=== PATIENT | female | born 1995 | race Caucasian/White ===

== ENCOUNTER 2018-12-22 23:19 | Emergency (ER) | payer OTHER ==
[~2018-12-22] VITALS: Ht 162.6 cm; Wt 56.7 kg
[2018-12-22 23:29] VITALS: BP 129/71
[2018-12-23 00:03] LABS: BILIRUBIN,URINE NEGATIVE (NEG); CLARITY,URINE CLEAR; COLOR,URINE YELLOW; NITRITE,URINE NEGATIVE (NEG); PROTEIN,URINE NEGATIVE (NEG-TRACE)
[2018-12-23 00:06] LABS: BASO % 0 % (0-3); EOS # 0.2 x10^3/uL (0.0-0.7); EOS % 3 % (0-3); HEMATOCRIT 43.4 % (36.0-47.0); HEMOGLOBIN 14.6 g/dL (12.0-15.5); LYMPH # 2.7 x10^3/uL (1.0-4.8); LYMPH % 32 % (24-48); MEAN CORPUSCULAR HEMOGLOBIN 29 pg (25-35); MEAN CORPUSCULAR HGB CONC 34 g/dL (31-37); MEAN CORPUSCULAR VOLUME 85 fL (79-100); MONO # 0.8 x10^3/uL (0.0-1.1); MONO % 9 % (0-9); NEUT # 4.6 x10^3uL (1.8-7.7); NEUT % 55 % (31-73); PLATELET COUNT 220 x10^3/uL (140-400); RED BLOOD COUNT 5.13 x10^6/uL (3.50-5.40); RED CELL DISTRIBUTION WIDTH 12.9 % (11.5-14.5); WHITE BLOOD COUNT 8.3 x10^3/uL (4.0-11.0)
[2018-12-23 00:14] LABS: BACTERIA,URINE FEW /HPF (0-FEW); RBC,URINE 0 /HPF (0-2); SQUAMOUS EPITHELIAL CELL,UR MOD /LPF; WBC,URINE 0 /HPF (0-4)
--- NOTE | 2018-12-23 00:16 | PHYS DOC ---
Past Medical History Past Medical History: Endometriosis, Other Additional Past Medical Histor: PCOS Past Surgical History: Additional Past Surgical Histo: ENDOMETRIOSIS Drug Use: None Adult General Chief Complaint Chief Complaint: ABDOMINAL PAIN IN HPI HPI Patient is a 23 year old female who presents with transient pain a couple of seconds only on prior scar. She describes the lower abdominal pain as a migratory "electric shock" sensation. She denies any trauma to the pelvic region. Denies vaginal bleeding, fever, chills, nausea, vomiting, diarrhea. Last menstrual period 11/20/18. She expresses concern about the viability of this since she has had a recent "blighted ovum."[] Review of Systems Review of Systems Constitutional: Denies fever or chills [] Eyes: Denies change in visual acuity, redness, or eye pain [] HENT: Denies nasal congestion or sore throat [] Respiratory: Denies cough or shortness of breath [] Cardiovascular: No additional information not addressed in HPI [] Neurologic: Denies headache, focal weakness or sensory changes [] All other systems were reviewed and found to be within normal limits, except as documented in this note. Physical Exam Physical Exam Constitutional: Well developed, well nourished, no acute distress, non-toxic appearance. [] HENT: Normocephalic, atraumatic, bilateral external ears normal, oropharynx moist, no oral exudates, nose normal. [] Eyes: PERRLA, EOMI, conjunctiva normal, no discharge. [] Neck: Normal range of motion, no tenderness, supple, no stridor. [] Pulmonary: Normal respiratory effort no increased work of breathing no obvious chest wall trauma Abdomen: Bowel sounds normal, soft, mild tenderness localizes to the lateral aspect of csection scar, no tenderness with deep palpation, no masses, no pulsatile masses. [] Neurologic: Alert and oriented X 3, normal motor function, normal sensory function, no focal deficits noted. [] Psychologic: Affect normal, judgement normal, mood normal. [] Current Patient Data Vital Signs Vital Signs Date Time Temp Pulse Resp B/P (MAP) Pulse Ox O2 Delivery O2 Flow Rate FiO2 12/22/18 23:29 97.7 89 18 129/71 (90) 99 Room Air 97.7 Lab Values Laboratory Tests Test 12/22/18 23:39 12/22/18 23:42 White Blood Count 8.3 x10^3/uL (4.0-11.0) Red Blood Count 5.13 x10^6/uL (3.50-5.40) Hemoglobin 14.6 g/dL (12.0-15.5) Hematocrit 43.4 % (36.0-47.0) Mean Corpuscular Volume 85 fL (79-100) Mean Corpuscular Hemoglobin 29 pg (25-35) Mean Corpuscular Hemoglobin Concent 34 g/dL (31-37) Red Cell Distribution Width 12.9 % (11.5-14.5) Platelet Count 220 x10^3/uL (140-400) Neutrophils (%) (Auto) 55 % (31-73) Lymphocytes (%) (Auto) 32 % (24-48) Monocytes (%) (Auto) 9 % (0-9) Eosinophils (%) (Auto) 3 % (0-3) Basophils (%) (Auto) 0 % (0-3) Neutrophils # (Auto) 4.6 x10^3uL (1.8-7.7) Lymphocytes # (Auto) 2.7 x10^3/uL (1.0-4.8) Monocytes # (Auto) 0.8 x10^3/uL (0.0-1.1) Eosinophils # (Auto) 0.2 x10^3/uL (0.0-0.7) Basophils # (Auto) 0.0 x10^3/uL (0.0-0.2) Urine Collection Type Unknown Urine Color Yellow Urine Clarity Clear Urine pH 8.0 Urine Specific [place] 1.015 Urine Protein Negative mg/dL (NEG-TRACE) Urine Glucose (UA) Negative mg/dL (NEG) Urine Ketones (Stick) Negative mg/dL (NEG) Urine Blood Negative (NEG) Urine Nitrite Negative (NEG) Urine Bilirubin Negative (NEG) Urine Urobilinogen Dipstick 1.0 mg/dL (0.2 mg/dL) Urine Leukocyte Esterase Negative (NEG) Urine RBC 0 /HPF (0-2) Urine WBC 0 /HPF (0-4) Urine Squamous Epithelial Cells Mod /LPF Urine Bacteria Few /HPF (0-FEW) Maternal Serum HCG Beta Subunit 2330 mIU/mL (0-5) H POC Urine HCG, Qualitative Hcg positive (Negative) Laboratory Tests 12/22/18 23:39 EKG EKG [] Radiology/Procedures Radiology/Procedures [] Course & Med Decision Making Course & Med Decision Making Pt is a 23 year old A1 female with past medical history of PCOS and endometriosis presents with transient, migratory "zapping" sensation over her lower abdominal scar and bony pelvic pain. Pt is anxious regarding the viability of this due to recent loss of 2 months ago. Pertinent Labs and Imaging studies reviewed. (See chart for details) Plan: hcg quant UA. Noted date is 2300 up from 500 range 3-4 days ago appropriate doubling. Patient account is 11/20 likely too early for ultrasound imaging at this time although I did tell her that she needs to follow-up with her OB doctor this week for repeat ultrasound, to the ER for any increase in pain. At this point she really not having any pain in the emergency room on reevaluation she had some mild tenderness localized mainly to the site of her C- section scar this does not sound like ectopic related pain. She was instructed on importance of follow-up to ensure presence of an IUP once a little further along in the next week or so she understands and will do so. Dragon Disclaimer Dragon Disclaimer This electronic medical record was generated, in whole or in part, using a voice recognition dictation system. Departure Departure Impression: Primary Impression: Abdominal pain affecting Disposition: HOME, SELF-CARE Condition: STABLE KRYSTLE MENDEZ MD Dec 23, 2018 00:16
== END 2018-12-23 01:26 | disposition home or self-care (01) ==
LOC: ER 23:19
DX: O26.891 Other specified pregnancy related conditions, first trimester (principal); R10.30 Lower abdominal pain, unspecified; Z3A.01 Less than 8 weeks gestation of pregnancy
CPT/HCPCS: 36415; 81001; 81025; 84702; 85025; 99283

== ENCOUNTER 2019-02-24 19:54 | Emergency (ER) | payer OTHER ==
[~2019-02-24] VITALS: Ht 162.6 cm; Wt 53.1 kg
[2019-02-24] MEDS ORDERED: FAMOTIDINE 20 MG/2 ML VIAL IVP ONE (20:30)
[2019-02-24] MEDS ORDERED: IV NORMAL SALINE 1000ML BAG 1,000 ML IV ONE (20:30)
[2019-02-24] MEDS ORDERED: ONDANSETRON PF 4 MG/2 ML VIAL. IV ONE (20:30)
--- NOTE | 2019-02-24 21:25 | RAD ---
Obstetrical ultrasound HISTORY: 14 weeks with pelvic pain. Abdomen pain and back pain. FINDINGS: Placenta is fundal in location. heart tones are documented with a heart rate of 162 bpm. Maternal left ovary measures 3.7 cm long axis with intact blood supply, and a 15 mm hypoechoic lesion may represent a hemorrhagic cyst. The maternal right ovary is not seen. movement is documented during the exam. position was variable. Amniotic fluid volume appears within normal limits. Biparietal diameter, head circumference, abdomen circumference and femur length are measured. The estimated sonographic age is 14 weeks and 2 days with an estimated due date of 08/23/2019. IMPRESSION: Single viable intrauterine , estimated age of 14 weeks 2 days. Electronically signed by: Jermaine Nagy MD (02/24/2019 9:22 PM) [facility]
[2019-02-24 21:30] LABS: BASO % 1 % (0-3); EOS # 0.2 x10^3/uL (0.0-0.7); EOS % 4 % (0-3); HEMATOCRIT 39.9 % (36.0-47.0); HEMOGLOBIN 13.6 g/dL (12.0-15.5); LYMPH # 1.9 x10^3/uL (1.0-4.8); LYMPH % 30 % (24-48); MEAN CORPUSCULAR HEMOGLOBIN 29 pg (25-35); MEAN CORPUSCULAR HGB CONC 34 g/dL (31-37); MEAN CORPUSCULAR VOLUME 85 fL (79-100); MONO # 0.5 x10^3/uL (0.0-1.1); MONO % 8 % (0-9); NEUT # 3.7 x10^3uL (1.8-7.7); NEUT % 58 % (31-73); PLATELET COUNT 161 x10^3/uL (140-400); RED BLOOD COUNT 4.71 x10^6/uL (3.50-5.40); RED CELL DISTRIBUTION WIDTH 13.5 % (11.5-14.5); WHITE BLOOD COUNT 6.4 x10^3/uL (4.0-11.0)
[2019-02-24] MEDS ORDERED: AZITHROMYCIN 250 MG TABLET. PO ONE (21:30)
[2019-02-24] MEDS ORDERED: cefTRIAXone IM 250 MG VIAL IM ONE (21:30)
[2019-02-24 21:34] LABS: BILIRUBIN,URINE NEGATIVE (NEG); CLARITY,URINE CLEAR; COLOR,URINE YELLOW; NITRITE,URINE NEGATIVE (NEG); PROTEIN,URINE NEGATIVE (NEG-TRACE)
[2019-02-24 21:39] LABS: BACTERIA,URINE MODERATE /HPF (0-FEW); RBC,URINE 0 /HPF (0-2); SQUAMOUS EPITHELIAL CELL,UR MOD /LPF
[2019-02-24 21:40] LABS: CALCIUM 8.7 mg/dL (8.5-10.1); CREATININE 0.6 mg/dL (0.6-1.0); GFR 126.2; POTASSIUM 3.5 mmol/L (3.5-5.1)
[2019-02-24 21:46] LABS: ALBUMIN 3.3 g/dL (3.4-5.0); MAGNESIUM 1.7 mg/dL (1.8-2.4); TOTAL BILIRUBIN 0.5 mg/dL (0.2-1.0); TOTAL PROTEIN 6.6 g/dL (6.4-8.2)
[2019-02-24 22:37] VITALS: BP 112/71
--- NOTE | 2019-02-24 22:38 | PHYS DOC ---
Past Medical History Past Medical History: Endometriosis Additional Past Medical Histor: PCOS Past Surgical History: Additional Past Surgical Histo: ENDOMETRIOSIS Alcohol Use: None Drug Use: None Adult General Chief Complaint Chief Complaint: ABDOMINAL PAIN IN HPI HPI Patient is a 23 year old female who is 14 weeks presents with abdominal pain. Patient describes the pain as a pressure sensation in his located in her lower abdomen. She is also expressing some left flank pain. Movement makes her pain worse. Nothing has improved her pain. She is also to some nausea and vomiting. Denies any pain with urination. She is having some vaginal discharge and she said was she was diagnosed with a yeast infection one week ago but has been unable to fill her prescription. She denies any fevers or chills. Review of Systems Review of Systems Constitutional: Denies fever or chills [] Eyes: Denies redness or eye pain [] HENT: Denies nasal congestion or sore throat [] Respiratory: Denies cough or shortness of breath [] Cardiovascular: Denies chest pain or palpitations GI: Reports abdominal pain, nausea, vomiting. Denies bloody stools or diarrhea [] : Denies dysuria or hematuria [] Musculoskeletal: Reports flank pain. Denies joint pain [] Integument: Denies rash or skin lesions [] Neurologic: Denies headache or focal weakness Complete systems were reviewed and found to be within normal limits, except as documented in this note. Current Medications Current Medications Current Medications Medications (Trade) Dose Ordered Sig/Justyn Start Time Stop Time Status Last Admin Dose Admin Azithromycin (Zithromax) 1,000 mg 1X ONCE 02/24/19 21:30 02/24/19 21:31 DC 02/24/19 21:37 1,000 MG Ceftriaxone Sodium (Rocephin Im) 250 mg 1X ONCE 02/24/19 21:30 02/24/19 21:31 DC 02/24/19 21:36 250 MG Famotidine (Pepcid Vial) 20 mg 1X ONCE 02/24/19 20:30 02/24/19 20:31 DC 02/24/19 21:36 20 MG Ondansetron HCl (Zofran) 4 mg 1X ONCE 02/24/19 20:30 02/24/19 20:31 DC 02/24/19 21:36 4 MG Sodium Chloride 1,000 ml @ 1,000 mls/hr 1X ONCE 02/24/19 20:30 02/24/19 21:29 DC 02/24/19 21:37 1,000 MLS/HR Allergies Allergies Allergies Coded Allergies Type Severity Reaction Last Updated Verified metronidazole Allergy Intermediate 02/24/19 Yes Physical Exam Physical Exam Constitutional: Well developed, well nourished, HENT: Normocephalic, atraumatic Eyes: conjunctiva normal, no discharge. [] Neck: Normal range of motion, supple Cardiovascular:Heart rate regular rhythm, no murmur [] Lungs & Thorax: Bilateral breath sounds clear to auscultation [] Abdomen: Bowel sounds normal, soft, suprapubic tenderness, left flank tenderness, non-peritoneal Skin: Warm, dry, Back: No tenderness, no CVA tenderness. [] Extremities: No clubbing, ROM intact, no edema. [] Neurologic: Alert and oriented X 3, no focal deficits noted. [] Psychologic: Affect normal, mood normal. [] Current Patient Data Vital Signs Vital Signs Date Time Temp Pulse Resp B/P (MAP) Pulse Ox O2 Delivery O2 Flow Rate FiO2 02/24/19 22:37 70 112/71 (85) 100 Room Air 02/24/19 20:12 98.2 20 98.2 Lab Values Laboratory Tests Test 02/24/19 20:35 02/24/19 21:20 Urine Collection Type Unknown Urine Color Yellow Urine Clarity Clear Urine pH 7.0 Urine Specific [place] 1.025 Urine Protein Negative mg/dL (NEG-TRACE) Urine Glucose (UA) Negative mg/dL (NEG) Urine Ketones (Stick) Trace mg/dL (NEG) Urine Blood Negative (NEG) Urine Nitrite Negative (NEG) Urine Bilirubin Negative (NEG) Urine Urobilinogen Dipstick 1.0 mg/dL (0.2 mg/dL) Urine Leukocyte Esterase Trace (NEG) Urine RBC 0 /HPF (0-2) Urine WBC 1-4 /HPF (0-4) Urine Squamous Epithelial Cells Mod /LPF Urine Bacteria Moderate /HPF (0-FEW) Urine Mucus Marked /LPF White Blood Count 6.4 x10^3/uL (4.0-11.0) Red Blood Count 4.71 x10^6/uL (3.50-5.40) Hemoglobin 13.6 g/dL (12.0-15.5) Hematocrit 39.9 % (36.0-47.0) Mean Corpuscular Volume 85 fL (79-100) Mean Corpuscular Hemoglobin 29 pg (25-35) Mean Corpuscular Hemoglobin Concent 34 g/dL (31-37) Red Cell Distribution Width 13.5 % (11.5-14.5) Platelet Count 161 x10^3/uL (140-400) Neutrophils (%) (Auto) 58 % (31-73) Lymphocytes (%) (Auto) 30 % (24-48) Monocytes (%) (Auto) 8 % (0-9) Eosinophils (%) (Auto) 4 % (0-3) H Basophils (%) (Auto) 1 % (0-3) Neutrophils # (Auto) 3.7 x10^3uL (1.8-7.7) Lymphocytes # (Auto) 1.9 x10^3/uL (1.0-4.8) Monocytes # (Auto) 0.5 x10^3/uL (0.0-1.1) Eosinophils # (Auto) 0.2 x10^3/uL (0.0-0.7) Basophils # (Auto) 0.0 x10^3/uL (0.0-0.2) Maternal Serum HCG Beta Subunit 37878 mIU/mL (0-5) H Sodium Level 140 mmol/L (136-145) Potassium Level 3.5 mmol/L (3.5-5.1) Chloride Level 105 mmol/L (98-107) Carbon Dioxide Level 26 mmol/L (21-32) Anion Gap 9 (6-14) Blood Urea Nitrogen 5 mg/dL (7-20) L Creatinine 0.6 mg/dL (0.6-1.0) Estimated GFR (Cockcroft-Gault) 126.2 BUN/Creatinine Ratio 8 (6-20) Glucose Level 87 mg/dL (70-99) Calcium Level 8.7 mg/dL (8.5-10.1) Magnesium Level 1.7 mg/dL (1.8-2.4) L Total Bilirubin 0.5 mg/dL (0.2-1.0) Aspartate Amino Transferase (AST) 10 U/L (15-37) L Alanine Aminotransferase (ALT) 10 U/L (14-59) L Alkaline Phosphatase 47 U/L (46-116) Total Protein 6.6 g/dL (6.4-8.2) Albumin 3.3 g/dL (3.4-5.0) L Albumin/Globulin Ratio 1.0 (1.0-1.7) Lipase 149 U/L (73-393) Laboratory Tests 02/24/19 21:20 Laboratory Tests 02/24/19 21:20 Microbiology 02/24/19 Wet Prep - Final, Complete EKG EKG [] Radiology/Procedures Radiology/Procedures PROCEDURE: OB LIMITED Obstetrical ultrasound HISTORY: 14 weeks with pelvic pain. Abdomen pain and back pain. FINDINGS: Placenta is fundal in location. heart tones are documented with a heart rate of 162 bpm. Maternal left ovary measures 3.7 cm long axis with intact blood supply, and a 15 mm hypoechoic lesion may represent a hemorrhagic cyst. The maternal right ovary is not seen. movement is documented during the exam. position was variable. Amniotic fluid volume appears within normal limits. Biparietal diameter, head circumference, abdomen circumference and femur length are measured. The estimated sonographic age is 14 weeks and 2 days with an estimated due date of 08/23/2019. IMPRESSION: Single viable intrauterine , estimated age of 14 weeks 2 days. Electronically signed by: Jermaine Nagy MD (02/24/2019 9:22 PM) [facility] DICTATED and SIGNED BY: JERMAINE NAGY MD Course & Med Decision Making Course & Med Decision Making 23-year-old female who is 14 weeks presents emergency department for abdominal pain. Patient states this pain for multiple days. Patient is having some discharge for the past week where she has been diagnosed with yeast infection but was unable to fill her prescription. As and imaging obtained and posted to chart. Symptomatic treatment interval improvement. Pelvic swabs showed no infection. Patient stable for discharge with outpatient follow-up with PCP and [facility]. Discussed findings and plan with patient and family, who acknowledge understanding and agreement. Dragon Disclaimer Dragon Disclaimer This electronic medical record was generated, in whole or in part, using a voice recognition dictation system. Departure Departure Impression: Primary Impression: Abdominal pain affecting Disposition: HOME, SELF-CARE Condition: STABLE Referrals: NO PCP (PCP) Patient Instructions: Abdominal Pain During , [id number] Additional Instructions: Use over the counter Tylenol for pain JERMAINE CORONADO DO Feb 24, 2019 22:38
[2019-02-26 13:18] LABS: GC PROBE Negative (Negative)
== END 2019-02-24 23:04 | disposition home or self-care (01) ==
LOC: ER 19:54
DX: O26.892 Other specified pregnancy related conditions, second trimester (principal); R10.30 Lower abdominal pain, unspecified; R11.2 Nausea with vomiting, unspecified; N89.8 Other specified noninflammatory disorders of vagina; Z3A.14 14 weeks gestation of pregnancy; Z88.8 Allergy status to other drugs, medicaments and biological substances
CPT/HCPCS: 36415; 76815; 80053; 81001; 83690; 83735; 84702; 85025; 87086; 87491; 87591; 96361; 96372; 96374; 96375; 99285; J0696; J2405; J3490; J7030; Q0111; Q0144

== ENCOUNTER 2019-04-08 21:25 | Observation (INO) | payer OTHER ==
[2019-04-08 21:57] LABS: BILIRUBIN,URINE NEGATIVE (NEG); CLARITY,URINE CLEAR; COLOR,URINE YELLOW; NITRITE,URINE NEGATIVE (NEG); PH,URINE 6.5; PROTEIN,URINE NEGATIVE (NEG-TRACE)
[2019-04-08] MEDS ORDERED: IV RINGERS,LACTATED 1000ML 1,000 ML IV SCH (22:00)
[2019-04-08 22:02] LABS: BARBITURATES NEG (NEG); BENZODIAZEPINES NEG (NEG); CANNABINOIDS NEG (NEG); COCAINE NEG (NEG); METHADONE NEG (NEG); OPIATES NEG (NEG); PHENCYCLIDINE NEG (NEG)
[2019-04-08 22:03] LABS: AMPHETAMINE/METHAMPHETAMINE NEG (NEG)
[2019-04-08 22:11] LABS: BACTERIA,URINE FEW /HPF (0-FEW); SQUAMOUS EPITHELIAL CELL,UR MOD /LPF
[2019-04-08] MEDS ORDERED: ACETAMINOPHEN 500 MG TABLET PO ONE (23:00)
== END 2019-04-08 23:03 | disposition home or self-care (01) ==
LOC: 3 SO LND 21:25
PROVIDERS: ADMIT Obstetrics & Gynecology; ATTEND Obstetrics & Gynecology
DX: O26.892 Other specified pregnancy related conditions, second trimester (principal); O46.92 Antepartum hemorrhage, unspecified, second trimester; R10.30 Lower abdominal pain, unspecified; Z3A.20 20 weeks gestation of pregnancy
CPT/HCPCS: 80307; 81001; 87086; G0378; G0379

== ENCOUNTER 2019-07-20 01:33 | Observation (INO) | payer OTHER ==
[2019-07-20] MEDS ORDERED: IV RINGERS,LACTATED 1000ML 1,000 ML IV SCH (01:45)
[2019-07-20 02:32] LABS: BILIRUBIN,URINE NEGATIVE (NEG); CLARITY,URINE CLEAR; COLOR,URINE AMBER; NITRITE,URINE NEGATIVE (NEG); PROTEIN,URINE NEGATIVE (NEG-TRACE)
[2019-07-20 02:37] LABS: SQUAMOUS EPITHELIAL CELL,UR MANY /LPF
[2019-07-20 02:39] LABS: AMNIO PT NEGATIVE
[2019-07-20 02:46] LABS: BACTERIA,URINE MODERATE /HPF (0-FEW); RBC,URINE 0 /HPF (0-2)
== END 2019-07-20 03:33 | disposition home or self-care (01) ==
LOC: 3 SO LND 01:33
PROVIDERS: ADMIT Obstetrics & Gynecology; ATTEND Obstetrics & Gynecology
DX: O62.9 Abnormality of forces of labor, unspecified (principal); O26.893 Other specified pregnancy related conditions, third trimester; N89.8 Other specified noninflammatory disorders of vagina; Z3A.34 34 weeks gestation of pregnancy
CPT/HCPCS: 36415; 81001; 84112; 87086; G0378; G0379

== ENCOUNTER 2019-07-30 11:11 | Observation (INO) | payer OTHER ==
[2019-07-30] MEDS ORDERED: IV RINGERS,LACTATED 1000ML 1,000 ML IV SCH (11:38)
[2019-07-30 11:58] LABS: BILIRUBIN,URINE NEGATIVE (NEG); CLARITY,URINE CLEAR; COLOR,URINE AMBER; NITRITE,URINE NEGATIVE (NEG); PROTEIN,URINE NEGATIVE (NEG-TRACE)
[2019-07-30 12:04] LABS: BARBITURATES NEG (NEG); BENZODIAZEPINES NEG (NEG); CANNABINOIDS NEG (NEG); COCAINE NEG (NEG); METHADONE NEG (NEG); OPIATES NEG (NEG); PHENCYCLIDINE NEG (NEG)
[2019-07-30 12:05] LABS: SQUAMOUS EPITHELIAL CELL,UR MANY /LPF
[2019-07-30 12:06] LABS: BACTERIA,URINE FEW /HPF (0-FEW); RBC,URINE 0 /HPF (0-2)
[2019-07-30 12:08] LABS: AMPHETAMINE/METHAMPHETAMINE NEG (NEG)
[2019-07-30 13:18] LABS: BASO % 0 % (0-3); EOS # 0.1 x10^3/uL (0.0-0.7); EOS % 1 % (0-3); HEMATOCRIT 33.6 % (36.0-47.0); HEMOGLOBIN 11.3 g/dL (12.0-15.5); LYMPH # 1.7 x10^3/uL (1.0-4.8); LYMPH % 21 % (24-48); MEAN CORPUSCULAR HEMOGLOBIN 26 pg (25-35); MEAN CORPUSCULAR HGB CONC 34 g/dL (31-37); MEAN CORPUSCULAR VOLUME 78 fL (79-100); MONO # 0.8 x10^3/uL (0.0-1.1); MONO % 9 % (0-9); NEUT # 5.7 x10^3/uL (1.8-7.7); NEUT % 68 % (31-73); PLATELET COUNT 184 x10^3/uL (140-400); RED BLOOD COUNT 4.32 x10^6/uL (3.50-5.40); RED CELL DISTRIBUTION WIDTH 13.7 % (11.5-14.5); WHITE BLOOD COUNT 8.3 x10^3/uL (4.0-11.0)
[2019-07-30] MEDS ORDERED: ACETAMINOPHEN 500 MG TABLET PO ONE (14:00)
--- NOTE | 2019-07-30 14:44 | RAD ---
EXAM: Obstetrics sonogram. HISTORY: Uncertain date. TECHNIQUE: Sonographic imaging of a gravid uterus was performed. COMPARISON: 02/24/2019. FINDINGS: There is a single intrauterine fetus in cephalic presentation with a heart rate of 114 bpm. There is normal body motion. The amniotic fluid index is normal 11.8 cm. There is an anterior placenta without evidence of placenta previa. The cervix is obscured. The biparietal diameter is 9.39 cm, corresponding with 38 weeks and 2 days. The head circumference is 33.72 cm, corresponding with 38 weeks and 5 days. The abdominal circumference is 32.71 cm, corresponding with 36 weeks and 4 days. The femoral length is 6.8 cm, corresponding with 35 weeks and 2 days. The estimated gestational age patient combined ultrasound measurements is 37 weeks and 2 days and the estimated due date is 08/18/2019. The estimated weight is 3007 g. IMPRESSION: 1. Single intrauterine fetus in cephalic presentation with an estimated gestational age based on ultrasound measurements of 37 weeks and 2 days and heart rate of 114 bpm. 2. Note is made that the anatomy is not well assessed due to advanced gestational age. Electronically signed by: Rowena Acosta MD (07/30/2019 2:41 PM) [id number]
[2019-07-30] MEDS ORDERED: ONDANSETRON ODT 4 MG TAB.RAPDIS. PO ONE (15:30)
== END 2019-07-30 19:17 | disposition home or self-care (01) ==
LOC: 3 SO LND 11:11
PROVIDERS: ADMIT Obstetrics & Gynecology; ATTEND Obstetrics & Gynecology
DX: O26.893 Other specified pregnancy related conditions, third trimester (principal); R10.9 Unspecified abdominal pain; Z3A.36 36 weeks gestation of pregnancy
CPT/HCPCS: 36415; 76805; 80307; 81001; 85025; 86703; 86762; 86850; 86900; 86901; 87086; 87340; G0378; G0379; J7120; Q0162

== ENCOUNTER 2019-08-04 03:22 | Observation (INO) | payer OTHER ==
--- NOTE | 2019-08-04 03:30 | NUR ---
23 YO PRESENTS WITH COMPLAINTS OF NAUSEA AND VOMITING, ROM, AND CONTRACTIONS THAT STARTED AT 0300. HX OF PREVIOUS DELIVERY. Addendum: 08/04/19 at 0455 by DEEDEE GONZALZE RN 37.2 weeks gestation
[2019-08-04 03:45] LABS: BILIRUBIN,URINE NEGATIVE (NEG); CLARITY,URINE CLEAR; COLOR,URINE YELLOW; NITRITE,URINE NEGATIVE (NEG); PROTEIN,URINE NEGATIVE (NEG-TRACE)
[2019-08-04] MEDS ORDERED: ACETAMINOPHEN 325 MG TABLET. PO PRN (03:45)
[2019-08-04] MEDS ORDERED: ACETAMINOPHEN 500 MG TABLET PO PRN (03:45)
[2019-08-04] MEDS ORDERED: IV RINGERS,LACTATED 1000ML 1,000 ML IV SCH (03:45)
[2019-08-04 03:50] LABS: BACTERIA,URINE FEW /HPF (0-FEW); RBC,URINE 0 /HPF (0-2); SQUAMOUS EPITHELIAL CELL,UR MOD /LPF
[2019-08-04 04:06] LABS: AMNIO PT NEGATIVE
[2019-08-04] MEDS ORDERED: ONDANSETRON ODT 4 MG TAB.RAPDIS. PO PRN (04:15)
[2019-08-04] MEDS ORDERED: ONDANSETRON PF 4 MG/2 ML VIAL. IVP PRN (04:30)
[2019-08-04] MEDS ORDERED: TERBUTALINE 1 MG/ML VIAL. SQ ONE (08:45)
[2019-08-04 09:27] VITALS: BP 107/61
== END 2019-08-04 11:34 | disposition home or self-care (01) ==
LOC: 3 SO LND 03:22
PROVIDERS: ADMIT Obstetrics & Gynecology; ATTEND Obstetrics & Gynecology
DX: O21.2 Late vomiting of pregnancy (principal); O62.9 Abnormality of forces of labor, unspecified; O42.92 Full-term premature rupture of membranes, unspecified as to length of time between rupture and onset of labor; Z3A.37 37 weeks gestation of pregnancy
CPT/HCPCS: 36415; 81001; 84112; 87086; 96361; 96372; 96374; G0378; G0379; J2405; J3105; J7120

== ENCOUNTER 2019-08-04 19:23 | Observation (INO) | payer OTHER ==
[~2019-08-04] VITALS: Ht 162.6 cm; Wt 62.1 kg
[2019-08-04 20:00] VITALS: BP 110/73
[2019-08-04] MEDS ORDERED: ACETAMINOPHEN 500 MG TABLET PO PRN (20:00)
[2019-08-04] MEDS ORDERED: IV RINGERS,LACTATED 500ML 500 ML IV PRN (20:00)
== END 2019-08-04 21:45 | disposition home or self-care (01) ==
LOC: 3 SO LND 19:23
PROVIDERS: ADMIT Obstetrics & Gynecology; ATTEND Obstetrics & Gynecology
DX: O62.9 Abnormality of forces of labor, unspecified (principal); O99.89 Other specified diseases and conditions complicating pregnancy, childbirth and the puerperium; M54.9 Dorsalgia, unspecified; O26.893 Other specified pregnancy related conditions, third trimester; R51 Headache; Z3A.37 37 weeks gestation of pregnancy
CPT/HCPCS: G0378; G0379; J7120

== ENCOUNTER 2019-08-13 21:45 | Inpatient (IN) | payer OTHER ==
[~2019-08-13] VITALS: Ht 162.6 cm; Wt 62.1 kg
[2019-08-13] MEDS: IV RINGERS,LACTATED 1000ML 1,000 ML IV SCH (22:44)
[2019-08-14 00:39] LABS: BILIRUBIN,URINE NEGATIVE (NEG); CLARITY,URINE CLEAR; COLOR,URINE YELLOW; NITRITE,URINE NEGATIVE (NEG); PROTEIN,URINE NEGATIVE (NEG-TRACE)
[2019-08-14 00:48] LABS: BACTERIA,URINE FEW /HPF (0-FEW); SQUAMOUS EPITHELIAL CELL,UR FEW /LPF
[2019-08-14] MEDS ORDERED: hydrOXYzine 25 MG TABLET PO PRN (01:15)
[2019-08-14] MEDS: IV RINGERS,LACTATED 1000ML 1,000 ML IV SCH ×2 (02:27→23:25)
[2019-08-14] MEDS ORDERED: ONDANSETRON PF 4 MG/2 ML VIAL. IV PRN ×2 (03:00→16:15)
[2019-08-14] MEDS ORDERED: BUTORPHANOL 2 MG/ML VIAL. IV PRN (03:00)
[2019-08-14] MEDS ORDERED: ACETAMINOPHEN 325 MG TABLET. PO PRN (03:00)
[2019-08-14] MEDS ORDERED: fentaNYL PF VIAL 100 MCG/2 ML VIAL IV PRN (03:00)
[2019-08-14] MEDS ORDERED: LIDOCAINE 1% PF 30 ML VIAL. INJ PRN (03:00)
[2019-08-14] MEDS ORDERED: 0.9 % SODIUM CHLORIDE 10 ML DISP.SYRIN. IV PRN ×2 (03:00→16:15)
[2019-08-14] MEDS ORDERED: OXYTOCIN 30 UNIT/500 ML PREMIX 500 ML IV PRN ×3 (03:00→16:15)
[2019-08-14] MEDS ORDERED: TERBUTALINE 1 MG/ML VIAL. SQ PRN (03:00)
[2019-08-14] MEDS ORDERED: MAG HYDROX/ALUMINUM HYD/SIMETH 30 ML ORAL.SUSP PO PRN ×2 (03:00→16:15)
[2019-08-14] MEDS ORDERED: IV RINGERS,LACTATED 1000ML 1,000 ML IV SCH ×2 (03:00→14:51)
[2019-08-14] MEDS: NALBUPHINE 10 MG/ML AMPUL. IV PRN ×2 (03:07→14:47)
[2019-08-14 05:35] LABS: BASO # 0.1 x10^3/uL (0.0-0.2); BASO % 1 % (0-3); EOS % 0 % (0-3); HEMATOCRIT 31.9 % (36.0-47.0); HEMOGLOBIN 10.6 g/dL (12.0-15.5); LYMPH % 8 % (24-48); MEAN CORPUSCULAR HEMOGLOBIN 25 pg (25-35); MEAN CORPUSCULAR HGB CONC 33 g/dL (31-37); MEAN CORPUSCULAR VOLUME 77 fL (79-100); MONO # 0.6 x10^3/uL (0.0-1.1); MONO % 5 % (0-9); NEUT # 11.5 x10^3/uL (1.8-7.7); NEUT % 87 % (31-73); PLATELET COUNT 201 x10^3/uL (140-400); RED BLOOD COUNT 4.17 x10^6/uL (3.50-5.40); RED CELL DISTRIBUTION WIDTH 14.2 % (11.5-14.5); WHITE BLOOD COUNT 13.2 x10^3/uL (4.0-11.0)
[2019-08-14 07:23] LABS: % BANDS 14 % (0-9); % LYMPHS 8 % (24-48); % MONOS 8 % (0-10); % SEGS 70 % (35-66); PLT ESTIMATE ADEQUATE (ADEQUATE)
[2019-08-14 07:31] LABS: OVALOCYTES FEW
--- NOTE | 2019-08-14 14:43 | PDOC1 ---
OB - History Hx of Present Care: Good Care Ultrasounds: Normal mid trimester US Obstetrical Complications: None Medical Complications: None Past Family/Social History * Past Medical, Surgical, Family and Obstetric Histories reviewed from chart. Rubella: Immune RPR/VDRL: Negative GBS Status: Negative HBsAG: Negative OB - Chief Complaint & HPI Date of Admission: Date of Admission: Aug 13, 2019 at 21:45 Chief Complaint/History : 2 Para: 1 EGA: 38 Reason for admission: active labor Indication for : desires repeat Admission Nurse Assessment Rev: Yes OB - Admission Exam Physical Exam Vitals: VS - Last 72 Hours, by Label Date Time Temp Pulse Resp B/P (MAP) Pulse Ox O2 Delivery O2 Flow Rate FiO2 08/14/19 03:07 20 Room Air HEENT: Normal Heart: Regular Rate Lungs: Crackles Abdomen: Gravid, Tender Extremities: No tenderness or swelling Cervical Dilatation: 4cm Effacement: 100% Station: -3 Membranes: Intact Heart Rate: Normal Accelerations: Accelerations Present Decelerations: No decelerations Contractions on Admission: < 5 Minutes Apart Intensity: Firm Text A: 38 wks IUP Previous c/s ACtive labor P: Pt. desires repeat c/s. Pt. with severe abdominal pain with contractions. Plan for pain management and for repeat c/s. MICHAEL FERNANDEZ Jr, MD Aug 14, 2019 14:43
[2019-08-14] MEDS ORDERED: OXYTOCIN 10 UNIT/ML VIAL. ONE ×2 (14:55→15:41)
[2019-08-14] MEDS ORDERED: ONDANSETRON PF 4 MG/2 ML VIAL. ONE (14:55)
[2019-08-14] MEDS ORDERED: ePHEDrine PF IN SALINE 50 MG/10 ML SYRINGE. IV ONE (14:55)
[2019-08-14] MEDS ORDERED: fentaNYL PF VIAL 100 MCG/2 ML VIAL ONE (14:55)
[2019-08-14] MEDS ORDERED: MORPHINE PF 10 MG/10 ML AMPUL. ONE (14:55)
[2019-08-14] MEDS ORDERED: ceFAZolin 2GM PREMIX 2 GM/50 ML BAG IV ONE (15:00)
[2019-08-14] MEDS ORDERED: CITRIC ACID/SODIUM CITRATE 30 ML SOLUTION. PO ONE (15:00)
--- NOTE | 2019-08-14 16:09 | PDOC4 ---
OB Operative Note Date: Aug 14, 2019 PRE OP DIAGNOSIS: Previoujs C- section (active labor) POST OP DIAGNOSIS: Other (uterine dehiscence) OPERATION PERFORMED: R [facility] Surgeon Dr. Murry Anesthesia: Regional (Spinal) Blood Loss 600 ml Specimen placenta and infant OB Findings: Position (Vertex), Sex (Male), (8/9), Weight (6 Lb 7 oz.) Complications none Additional Remarks pt. MICHAEL Wheeler Jr, MD Aug 14, 2019 16:09
[2019-08-14] MEDS ORDERED: ZOLPIDEM 5 MG TABLET. PO PRN (16:15)
[2019-08-14] MEDS ORDERED: diphenhydrAMINE ORAL ELIXIR 12.5 MG/5 ML ML PO PRN (16:15)
--- NOTE | 2019-08-14 16:29 | OP ---
DATE OF SURGERY: PREOPERATIVE DIAGNOSES: 1. A 38 weeks' intrauterine . 2. Previous . 3. Active labor, desiring repeat . POSTOPERATIVE DIAGNOSES: 1. A 38 weeks' intrauterine . 2. Previous . 3. Active labor, desiring repeat . 4. Uterine dehiscence. PROCEDURE: Repeat low transverse section. SURGEON: Michael Murry MD ANESTHESIA: Spinal. ESTIMATED BLOOD LOSS: 600 mL. COMPLICATIONS: None. FINDINGS: Viable male infant, Apgars 8 and 9, weight 6 pounds 7 ounces. Three-vessel cord placenta delivered manually intact. SUMMARY: A 23-year-old, 2, para 1 at 38 weeks, who presented to Labor and Delivery with complaints of contractions. The patient initially had contractions. She was provided IV hydration and the contractions started to dissipate. However, upon further observation, her contractions returned. She started having more severe lower abdominal pain. The patient initially wanted to attempt a and then changed her mind to desired repeat section due to the patient's pain severity and under reevaluation her cervix had dilated from 2 cm to 4 cm. She was then counseled on repeat section due to active labor and her desire to have a repeat . She was counseled on risks, benefits, and expectations and voiced clear understanding to proceed. DESCRIPTION OF PROCEDURE: The patient was taken to the surgery suite and placed in dorsal supine position. She was prepped with ChloraPrep and draped in sterile fashion. After adequate anesthesia, a Pfannenstiel skin incision was made with a scalpel down to and through the fascia. The fascia was extended laterally using curved Powers scissors. The superior edge of the fascia was grasped with 2 Angelina clamps and dissected free of the abdominal rectus muscles using blunt dissection along with Bovie cautery. The same process took place inferiorly. The abdominal rectus muscles were dissected bluntly at the midline. Peritoneum was grasped with 2 hemostats and entered sharply with Metzenbaum scissors. This incision was extended superiorly as well as inferiorly. The Сергей ring retractor was placed. The bladder flap was then created using sharp dissection with Nigerian pickups and Metzenbaum scissors. Uterine dehiscence of about 4 cm was visualized. Low transverse hysterotomy incision was made with scalpel down to and through the amniotic sac. The hysterotomy incision was extended laterally and superiorly digitally. With aid of fundal pressure, the posterior shoulder was delivered followed by the anterior shoulder. Rest of male infant was delivered. The infant was suctioned with a bulb syringe orally and nasally. Umbilical cord was clamped twice and cut and viable male infant was handed to waiting nursing staff. Umbilical cord blood was then obtained. Three-vessel cord placenta was delivered manually intact. The uterus was then exteriorized and cleared of clot and debris with a moist lap. The hysterotomy was visualized and hysterotomy incision was reapproximated using #1 Vicryl suture in running locked fashion. Uterus palpated firm. Fallopian tubes and ovaries appeared normal bilaterally. Posterior cul-de-sac was cleared of clot and debris with a moist lap. The uterus was then returned to the abdomen. Hysterotomy incision was reviewed and was hemostatic. Pericolic gutters were cleared of clot and debris with a moist lap. The Сергей ring retractor was removed. The peritoneum was reapproximated using #1 Vicryl suture in running fashion. Fascia was reapproximated using Stratafix in running fashion. Skin was reapproximated using 4-0 Vicryl suture in subcuticular manner. Sponge and needle count correct x 3. The patient tolerated the procedure well and was taken to recovery room in stable condition. MICHAEL MURRY MD DR: YAKOV/charmaine JOB#: [id number] / [id number]
[2019-08-14] MEDS ORDERED: FERROUS SULFATE 325 MG TABLET. PO SCH (17:00)
[2019-08-14] MEDS: KETOROLAC 30 MG/ML VIAL. IV PRN ×2 (17:22→23:34)
[2019-08-14] MEDS ORDERED: diphenhydrAMINE 50 MG/ML VIAL IVP ONE (17:45)
[2019-08-14 21:00] VITALS: BP 111/73
[2019-08-14 21:04] VITALS: BP 111/73
[2019-08-14 23:32] VITALS: BP 108/69
[2019-08-15 02:00] VITALS: BP 110/62
[2019-08-15 05:07] LABS: BASO % 0 % (0-3); EOS # 0.2 x10^3/uL (0.0-0.7); EOS % 2 % (0-3); HEMATOCRIT 30.8 % (36.0-47.0); LYMPH # 1.6 x10^3/uL (1.0-4.8); LYMPH % 12 % (24-48); MEAN CORPUSCULAR HEMOGLOBIN 25 pg (25-35); MEAN CORPUSCULAR HGB CONC 32 g/dL (31-37); MEAN CORPUSCULAR VOLUME 77 fL (79-100); MONO # 1.4 x10^3/uL (0.0-1.1); MONO % 11 % (0-9); NEUT # 9.6 x10^3/uL (1.8-7.7); NEUT % 75 % (31-73); PLATELET COUNT 177 x10^3/uL (140-400); RED CELL DISTRIBUTION WIDTH 14.4 % (11.5-14.5); WHITE BLOOD COUNT 12.8 x10^3/uL (4.0-11.0)
[2019-08-15] MEDS: SIMETHICONE 80 MG TAB.CHEW PO PRN ×3 (07:53→16:56)
[2019-08-15] MEDS: DOCUSATE SODIUM 100 MG CAPSULE. PO PRN ×2 (07:53→16:56)
[2019-08-15] MEDS: KETOROLAC 30 MG/ML VIAL. IV PRN (07:53)
[2019-08-15 08:13] VITALS: BP 108/64
[2019-08-15 10:15] VITALS: BP 98/64
--- NOTE | 2019-08-15 10:34 | NUR ---
1015 SHOWER ROOM PATIENT PULLED EMERGENCY LIGHT IN RESTROOM, PATIENT SITTING ON TOILET STATED SHE FELT LIKE SHE WAS GOING TO PUKE, PATIENT SLURRING HER WORDS PALE IN COLOR, EYES NOT FOCUSING. RN CALLED FOR ADDITIONAL HELP... PATIENT GOWN PLACED ON PATIENT, FANNED, COLD TOWEL APPLIED TO NECK AND HEAD. PATIENT ASSISTED TO WHEELCHAIR, THEN ASSISTED BACK TO BED. VITALS TAKEN, SEE FLOW SHEET. PATIENT STATES SHE FEELS BETTER, WATER, JUICE, CRACKERS GIVEN TO PATIENT PER REQUEST. PATIENT STATES SHE LOOKED AT HER INCISION AND FELT SICK AND CALLED RN. FAMILY AT BEDSIDE, WILL CONTINUE TO MONITOR.
[2019-08-15] MEDS: oxyCODONE/APAP 5/325 1 TAB TABLET PO PRN (13:32)
--- NOTE | 2019-08-15 15:57 | PDOC ---
OB Progress Note Date of Service 08/15/19 Time of Evaluation 1555 Notes PT. feeling well. Pain controlled. Pt. tolerating regular diet, ambulating in room and voiding without difficulty. Lab Laboratory Tests Test 08/14/19 00:00 08/14/19 05:17 08/15/19 04:00 Urine Collection Type Unknown Urine Color Yellow Urine Clarity Clear Urine pH 7.0 Urine Specific [place] 1.015 Urine Protein Negative mg/dL (NEG-TRACE) Urine Glucose (UA) Negative mg/dL (NEG) Urine Ketones (Stick) Negative mg/dL (NEG) Urine Blood Small (NEG) Urine Nitrite Negative (NEG) Urine Bilirubin Negative (NEG) Urine Urobilinogen Dipstick 4.0 mg/dL (0.2 mg/dL) Urine Leukocyte Esterase Negative (NEG) Urine RBC 1-2 /HPF (0-2) Urine WBC 1-4 /HPF (0-4) Urine Squamous Epithelial Cells Few /LPF Urine Bacteria Few /HPF (0-FEW) Urine Mucus Slight /LPF White Blood Count 13.2 x10^3/uL (4.0-11.0) 12.8 x10^3/uL (4.0-11.0) Red Blood Count 4.17 x10^6/uL (3.50-5.40) 4.00 x10^6/uL (3.50-5.40) Hemoglobin 10.6 g/dL (12.0-15.5) 10.0 g/dL (12.0-15.5) Hematocrit 31.9 % (36.0-47.0) 30.8 % (36.0-47.0) Mean Corpuscular Volume 77 fL (79-100) 77 fL (79-100) Mean Corpuscular Hemoglobin 25 pg (25-35) 25 pg (25-35) Mean Corpuscular Hemoglobin Concent 33 g/dL (31-37) 32 g/dL (31-37) Red Cell Distribution Width 14.2 % (11.5-14.5) 14.4 % (11.5-14.5) Platelet Count 201 x10^3/uL (140-400) 177 x10^3/uL (140-400) Neutrophils (%) (Auto) 87 % (31-73) 75 % (31-73) Lymphocytes (%) (Auto) 8 % (24-48) 12 % (24-48) Monocytes (%) (Auto) 5 % (0-9) 11 % (0-9) Eosinophils (%) (Auto) 0 % (0-3) 2 % (0-3) Basophils (%) (Auto) 1 % (0-3) 0 % (0-3) Neutrophils # (Auto) 11.5 x10^3/uL (1.8-7.7) 9.6 x10^3/uL (1.8-7.7) Lymphocytes # (Auto) 1.0 x10^3/uL (1.0-4.8) 1.6 x10^3/uL (1.0-4.8) Monocytes # (Auto) 0.6 x10^3/uL (0.0-1.1) 1.4 x10^3/uL (0.0-1.1) Eosinophils # (Auto) 0.0 x10^3/uL (0.0-0.7) 0.2 x10^3/uL (0.0-0.7) Basophils # (Auto) 0.1 x10^3/uL (0.0-0.2) 0.0 x10^3/uL (0.0-0.2) Segmented Neutrophils % 70 % (35-66) Band Neutrophils % 14 % (0-9) Lymphocytes % 8 % (24-48) Monocytes % 8 % (0-10) Platelet Estimate Adequate (ADEQUATE) Large Platelets Occ Ovalocytes Few Treponema pallidum Antibody Nonreactive (Nonreactive) Laboratory Tests Test 08/15/19 04:00 White Blood Count 12.8 x10^3/uL (4.0-11.0) Red Blood Count 4.00 x10^6/uL (3.50-5.40) Hemoglobin 10.0 g/dL (12.0-15.5) Hematocrit 30.8 % (36.0-47.0) Mean Corpuscular Volume 77 fL (79-100) Mean Corpuscular Hemoglobin 25 pg (25-35) Mean Corpuscular Hemoglobin Concent 32 g/dL (31-37) Red Cell Distribution Width 14.4 % (11.5-14.5) Platelet Count 177 x10^3/uL (140-400) Neutrophils (%) (Auto) 75 % (31-73) Lymphocytes (%) (Auto) 12 % (24-48) Monocytes (%) (Auto) 11 % (0-9) Eosinophils (%) (Auto) 2 % (0-3) Basophils (%) (Auto) 0 % (0-3) Neutrophils # (Auto) 9.6 x10^3/uL (1.8-7.7) Lymphocytes # (Auto) 1.6 x10^3/uL (1.0-4.8) Monocytes # (Auto) 1.4 x10^3/uL (0.0-1.1) Eosinophils # (Auto) 0.2 x10^3/uL (0.0-0.7) Basophils # (Auto) 0.0 x10^3/uL (0.0-0.2) Medications Current Medications Ringer's Solution 1,000 ml @ 125 mls/hr Q8H IV Last administered on 08/14/19at 23:25; Start 08/13/19 at 22:00; Stop 08/15/19 at 14:29; Status DC Hydroxyzine HCl (Atarax) 50 mg PRN Q6HRS PRN PO ITCHING Last administered on 08/14/19at 01:11; Start 08/14/19 at 01:15 Sodium Chloride (Normal Saline Flush) 3 ml QSHIFT PRN IV AFTER MEDS AND BLOOD DRAWS; Start 08/14/19 at 03:00 Ringer's Solution 1,000 ml @ 125 mls/hr Q8H IV ; Start 08/14/19 at 03:00; Stop 08/15/19 at 14:29; Status DC Nalbuphine HCl (Nubain) 10 mg PRN Q1HR PRN IV Severe labor pain Last administered on 08/14/19at 14:47; Start 08/14/19 at 03:00 Butorphanol Tartrate (Stadol) 2 mg PRN Q1HR PRN IV Severe labor pain; Start 08/14/19 at 03:00 Fentanyl Citrate (Fentanyl 2ml Vial) 100 mcg PRN Q20MIN PRN IV Labor pain; Sta rt 08/14/19 at 03:00 Acetaminophen (Tylenol) 650 mg PRN Q6HRS PRN PO MILD PAIN / TEMP; Start 08/14/19 at 03:00 Ondansetron HCl (Zofran) 4 mg PRN Q4HRS PRN IV NAUSEA/VOMITING; Start 08/14/19 at 03:00 Al Hydroxide/Mg Hydroxide (Mylanta Plus Xs) 30 ml PRN Q4HRS PRN PO HEARTBURN / GAS Last administered on 08/15/19at 10:11; Start 08/14/19 at 03:00 Terbutaline Sulfate (Brethine) 0.25 mg 1X PRN PRN SQ SEE COMMENTS; Start 08/14/19 at 03:00; Stop 08/15/19 at 02:59; Status DC Lidocaine HCl (Xylocaine 1% Pf 30ml Vial) 30 ml 1X PRN PRN INJ SEE COMMENTS; Start 08/14/19 at 03:00; Stop 08/16/19 at 02:59 Oxytocin/Sodium Chloride 500 ml @ 0 mls/hr CONT PRN IV SEE I/O RECORD; Start 08/14/19 at 03:00 Oxytocin/Sodium Chloride 500 ml @ 0 mls/hr CONT PRN PRN IV Post delivery bleeding; Start 08/14/19 at 03:00 Ibuprofen (Motrin) 800 mg PRN Q6HRS PRN PO PAIN; Start 08/14/19 at 03:00 Ringer's Solution 1,000 ml @ 125 mls/hr Q8H IV ; Start 08/14/19 at 14:51; Stop 08/15/19 at 14:29; Status DC Cefazolin Sodium/ Dextrose 50 ml @ 100 mls/hr 1X ONCE IV ; Start 08/14/19 at 15:00; Stop 08/14/19 at 15:29; Status DC Citric Acid/ Sodium Citrate (Bicitra) 30 ml 1X ONCE PO Last administered on 08/14/19at 15:08; Start 08/14/19 at 15:00; Stop 08/14/19 at 15:01; Status DC Ondansetron HCl (Zofran) 4 mg STK-MED ONCE .ROUTE ; Start 08/14/19 at 14:55; Stop 08/14/19 at 14:55; Status DC Oxytocin (Pitocin) 10 unit STK-MED ONCE .ROUTE ; Start 08/14/19 at 14:55; Stop 08/14/19 at 14:55; Status DC Ephedrine Sulfate (ePHEDrine PF IN SALINE SYRINGE) 50 mg STK-MED ONCE IV ; Start 08/14/19 at 14:55; Stop 08/14/19 at 14:55; Status DC Morphine Sulfate (Morphine Preservative Free) 10 mg STK-MED ONCE .ROUTE ; Start 08/14/19 at 14:55; Stop 08/14/19 at 14:56; Status DC Fentanyl Citrate (Fentanyl 2ml Vial) 100 mcg STK-MED ONCE .ROUTE ; Start 08/14/19 at 14:55; Stop 08/14/19 at 14:56; Status DC Oxytocin (Pitocin) 10 unit STK-MED ONCE .ROUTE ; Start 08/14/19 at 15:41; Stop 08/14/19 at 15:41; Status DC Sodium Chloride (Normal Saline Flush) 3 ml QSHIFT PRN IV AFTER MEDS AND BLOOD DRAWS; Start 08/14/19 at 16:15; Stop 08/14/19 at 17:28; Status DC Oxytocin/Sodium Chloride 500 ml @ 125 mls/hr CONT PRN IV EXCESSIVE POST- BLEEDING; Start 08/14/19 at 16:15; Stop 08/15/19 at 00:14; Status DC Ibuprofen (Motrin) 800 mg PRN Q4HRS PRN PO INFLAMMATION; Start 08/14/19 at 16:15 Ondansetron HCl (Zofran) 4 mg PRN Q6HRS PRN IV NAUSEA/VOMITING; Start 08/14/19 at 16:15 Docusate Sodium (Colace) 100 mg PRN BID PRN PO CONSTIPATION Last administered on 08/15/19at 07:53; Start 08/14/19 at 16:15 Al Hydroxide/Mg Hydroxide (Mylanta Plus Xs) 30 ml PRN Q4HRS PRN PO HEARTBURN / GAS; Start 08/14/19 at 16:15 Simethicone (Gas-X) 80 mg PRN AFTMEALHC PRN PO GAS / BLOATING Last administered on 08/15/19at 13:32; Start 08/14/19 at 16:15 Diphenhydramine HCl (Benadryl Oral Elixir) 12.5 mg PRN Q6HRS PRN PO ITCHING; Start 08/14/19 at 16:15 Ferrous Sulfate (Feosol) 325 mg BIDWMEALS PO Last administered on 08/15/19at 10:11; Start 08/14/19 at 17:00; Stop 08/15/19 at 14:29; Status DC Zolpidem Tartrate (Ambien) 5 mg PRN QHS PRN PO INSOMNIA, MAY REPEAT X1; Start 08/14/19 at 16:15 Oxycodone/ Acetaminophen (Percocet 5/325) 2 tab PRN Q4HRS PRN PO MODERATE PAIN, SEVERE PAIN Last administered on 08/15/19at 13:32; Start 08/14/19 at 16:15 Ketorolac Tromethamine (Toradol 30mg Vial) 30 mg PRN Q6HRS PRN IV PAIN Last administered on 08/15/19at 07:53; Start 08/14/19 at 16:15; Stop 08/19/19 at 16:14 Diphenhydramine HCl (Benadryl) 12.5 mg 1X ONCE IVP Last administered on 08/14/19at 17:35; Start 08/14/19 at 17:45; Stop 08/14/19 at 17:46; Status DC Cefazolin Sodium/ Dextrose (Ancef 2gm Premix) 2 gm STK-MED ONCE IV ; Start 08/14/19 at 15:00; Stop 08/15/19 at 12:59; Status DC Exam Abd: soft, mild tenderness, fundus firm Incision site: clean, dry and intact Assessment POD#1 s/p repeat c/s Plan of Care: Continue current Tx, Mgmt MICHAEL FERNANDEZ Jr, MD Aug 15, 2019 15:57
[2019-08-15] MEDS: IBUPROFEN 400 MG TABLET. PO PRN (16:56)
--- NOTE | 2019-08-15 17:30 | NUR ---
IV DC'D IV DC'D AT THIS TIME, PATIENT TOLERATED WELL.
[2019-08-15 20:20] VITALS: BP 105/68
[2019-08-16 06:43] VITALS: BP 106/72
[2019-08-16] MEDS: IBUPROFEN 400 MG TABLET. PO PRN ×2 (08:15→17:23)
[2019-08-16] MEDS: oxyCODONE/APAP 5/325 1 TAB TABLET PO PRN ×3 (08:15→17:22)
[2019-08-16] MEDS: SIMETHICONE 80 MG TAB.CHEW PO PRN ×2 (08:16→17:22)
[2019-08-16 10:30] VITALS: BP 110/74
--- NOTE | 2019-08-16 15:17 | PDOC ---
Provider Note Provider Note Doing well VSS Dressing CDUI FU in AM KULDEEP VILLEGAS MD Aug 16, 2019 15:17
[2019-08-16] MEDS: MAGNESIUM HYDROXIDE 2,400 MG/30 ML ORAL.SUSP. PO PRN (17:22)
[2019-08-16] MEDS: DOCUSATE SODIUM 100 MG CAPSULE. PO PRN (17:22)
[2019-08-16 17:30] VITALS: BP 121/77
[2019-08-16 22:00] VITALS: BP 120/82
[2019-08-17] MEDS: oxyCODONE/APAP 5/325 1 TAB TABLET PO PRN ×2 (04:43→08:11)
[2019-08-17] MEDS: IBUPROFEN 400 MG TABLET. PO PRN (04:43)
[2019-08-17 05:06] VITALS: BP 120/84
[2019-08-17] MEDS: DOCUSATE SODIUM 100 MG CAPSULE. PO PRN (08:10)
[2019-08-17] MEDS: MAGNESIUM HYDROXIDE 2,400 MG/30 ML ORAL.SUSP. PO PRN (08:11)
--- NOTE | 2019-08-17 11:58 | PDOC3 ---
OB DISCHARGE SUMMARY DATE OF ADMISSION: 08/13/19 DATE OF DISCHARGE: 08/17/19 REASON FOR ADMISSION: Onset of labor, section INTRAPARTUM PROCEDURES: : Low Cerv Trans DISCHARGE INFORMATION: Activity (ad ernesto), Diet (regular), Instructions (pelvic rest x 6 wks, no driving x 2 wks, no lifting> 20lbs x 4 wks) MICHAEL FERNANDEZ Jr, MD Aug 17, 2019 11:58
[2019-08-17] MEDS ORDERED: OXYC1TAB15 PO (12:00)
[2019-08-17] MEDS ORDERED: IBUP-1027 PO (12:00)
[2019-08-17] MEDS ORDERED: DOCU100C28 PO (12:00)
--- NOTE | 2019-08-17 12:00 | DISCH ---
DISCHARGE INSTRUCTIONS Condition on Discharge Condition on Discharge: Stable Activity After Discharge Activity Instructions for Disc: Activity as tolerated Lifting Instructions after Dis: No heavy lifting Driving Instructions after Dis: No driving for 2 weeks Diet after Discharge Diet after Discharge: Regular Contacting the DRNikolai after DC Call your doctor for: Concerns you may have Follow-Up Follow up with: Dr. Murry in 2 wks. MICHAEL MURYR Jr, MD Aug 17, 2019 12:00
[2019-08-17 12:20] VITALS: BP 108/70
== END 2019-08-17 12:53 | disposition home or self-care (01) | DRG 788 ==
LOC: OBSVTOIN 21:45 → 3 SO LND 21:45 → 3 NORTH 08-14 20:02
PROVIDERS: ADMIT Obstetrics & Gynecology; ATTEND Obstetrics & Gynecology
PROC: 10D00Z1 Extraction of Products of Conception, Low, Open Approach (ICD-10-PCS; principal; 2019-08-14)
DX: O34.211 Maternal care for low transverse scar from previous cesarean delivery (principal); Z3A.38 38 weeks gestation of pregnancy; Z37.0 Single live birth; O90.0 Disruption of cesarean delivery wound
CPT/HCPCS: 36415; 59025; 81001; 85007; 85025; 86592; 86850; 86900; 86901; 86920; G0378; G0379; J0171; J0696; J1200; J1885; J2274; J2300; J2405; J2590; J3010; J7120

== ENCOUNTER → 2019-11-28 | Outpatient (CLI) | payer OTHER ==
[~2019-11-28] MED LIST: DOCU100C28 PO; IBUP-1027 PO; OXYC1TAB15 PO
--- NOTE | 2019-11-28 16:30 | RAD ---
EXT NON VASC LEFT History: Left groin pain, question hernia Comparison: None. Findings: Multiple sonographic images of the left groin region are submitted. No hernia is demonstrated by ultrasound. There are scattered small nodes in the left groin region, largest 1.3 x 0.7 x 0.4 cm. No abnormal fluid collection is demonstrated. There is normal compressibility of the visualized left common femoral and greater saphenous veins. Impression: 1. No hernia is demonstrated by ultrasound in the left groin region. There are small nonspecific nodes in the left groin region although not considered significantly enlarged based on short axis dimensions. Electronically signed by: Tiburcio Aguayo MD (11/28/2019 4:27 PM) [id number]
--- NOTE | 2019-11-28 16:56 | RAD ---
EXAM: Pelvic ultrasound HISTORY: Left pelvic pain, recent section. COMPARISON: None. FINDINGS: Sonographic evaluation of the pelvis was performed transabdominally and transvaginally. The uterus is retroverted and measures 7.1 x 4.2 x 3.6 cm. The endometrial stripe measures 5 mm. No masses are identified. There is no significant free fluid. The right ovary measures 3.8 x 2.4 x 1.8 cm. The left ovary measures 4.0 x 2.0 x 1.9 cm. There are multiple small ovarian follicles bilaterally. On the left, one small hyperechoic nodule measures 8 x 7 mm. There is no internal perfusion. There is normal Doppler flow bilaterally. There are no suspicious clearly lesions. IMPRESSION: 1. A small hyperechoic nodule within the left ovary may represent a small endometrioma, or possibly a small teratoma. Benignity is favored. Follow-up could be performed in 3-6 months if there is persistent concern. 2. Correlate clinically for polycystic ovarian syndrome. Electronically signed by: Danyelle Neely MD (11/28/2019 4:53 PM) [facility]
== END | disposition home or self-care (01) ==
LOC: US 14:32
PROVIDERS: ATTEND Specialist
DX: N85.4 Malposition of uterus (principal); N83.8 Other noninflammatory disorders of ovary, fallopian tube and broad ligament
CPT/HCPCS: 76830; 76856; 76881

== ENCOUNTER 2021-03-13 18:27 | Observation (INO) | payer OTHER ==
[~2021-03-13] VITALS: Ht 162.6 cm; Wt 62.1 kg
[2021-03-13 20:13] LABS: BASO % 1 % (0-3); EOS # 0.2 x10^3/uL (0.0-0.7); EOS % 2 % (0-3); HEMATOCRIT 38.8 % (36.0-47.0); HEMOGLOBIN 13.4 g/dL (12.0-15.5); LYMPH # 2.2 x10^3/uL (1.0-4.8); LYMPH % 28 % (24-48); MEAN CORPUSCULAR HEMOGLOBIN 29 pg (25-35); MEAN CORPUSCULAR HGB CONC 35 g/dL (31-37); MEAN CORPUSCULAR VOLUME 83 fL (79-100); MONO # 0.7 x10^3/uL (0.0-1.1); MONO % 9 % (0-9); NEUT # 4.6 x10^3/uL (1.8-7.7); NEUT % 60 % (31-73); PLATELET COUNT 238 x10^3/uL (140-400); RED CELL DISTRIBUTION WIDTH 12.9 % (11.5-14.5); WHITE BLOOD COUNT 7.7 x10^3/uL (4.0-11.0)
[2021-03-13 20:14] LABS: BILIRUBIN,URINE NEGATIVE (NEG); CLARITY,URINE CLEAR; COLOR,URINE YELLOW; NITRITE,URINE NEGATIVE (NEG); PH,URINE 7.5 (<5.0-8.0); PROTEIN,URINE NEGATIVE (NEG-TRACE)
--- NOTE | 2021-03-13 20:14 | PHYS DOC ---
Past Medical History Past Medical History: Endometriosis Additional Past Medical Histor: PCOS Past Surgical History: Additional Past Surgical Histo: ENDOMETRIOSIS Smoking Status: Never Smoker Alcohol Use: None Drug Use: None General Adult EDM: Chief Complaint: DIZZY/LIGHT HEADED HPI: HPI: Patient is 25 year old female presents with a chief complaint of dizziness and syncope. Patient states dizziness has been on going x 2 weeks and she has had 2 syncopal episodes. Last syncopal episodes with this afternoon. Patient states she sudden onset of dizziness, palpitations and then every thing went black. Patient has has history of DVTs Patient is no longer on blood thinning medications. Patient states she this she might be . Patient is A2. Her LMP was January 28. Review of Systems: Review of Systems: Review of systems: Constitutional symptoms- No fever, no chills. Eyes- No Discharge, No Visual Loss Respiratory symptoms- No shortness of breath, No wheezing, No Dyspnea on Exertion Cardiovascular Systems; No chest pain, Positive Palpitations, Positive syncope Gastrointestinal symptoms: NO abdominal pain, no nausea, no vomiting or diarrhea. Genitourinary symptoms: No dysuria. Musculoskeletal symptoms: No back pain No extremity pain. NEUROLOGICAL Symptoms: No headache, no generalized weakness; No focal Weakness positive syncope Heart Score: C/O Chest Pain: N/A Risk Factors: Risk Factors: DM, Current or recent (<one month) smoker, HTN, HLP, family history of CAD, obesity. Risk Scores: Score 0 - 3: 2.5% MACE over next 6 weeks - Discharge Home Score 4 - 6: 20.3% MACE over next 6 weeks - Admit for Clinical Observation Score 7 - 10: 72.7% MACE over next 6 weeks - Early Invasive Strategies Allergies: Allergies: Allergies Coded Allergies Type Severity Reaction Last Updated Verified metronidazole Allergy Intermediate 02/24/19 Yes Physical Exam: PE: Constitutional: Well developed, well nourished, no acute distress, non-toxic appearance. [] HENT: Normocephalic, atraumatic, bilateral external ears normal, oropharynx moist, no oral exudates, nose normal. [] Eyes: PERRLA, EOMI, conjunctiva normal, no discharge. [] Neck: Normal range of motion, no tenderness, supple, no stridor. [] Cardiovascular:Heart rate regular rhythm, no murmur [] Lungs & Thorax: Bilateral breath sounds clear to auscultation [] Abdomen: Bowel sounds normal, soft, no tenderness, no masses, no pulsatile masses. [] Skin: Warm, dry, no erythema, no rash. [] Back: No tenderness, no CVA tenderness. [] Extremities: No tenderness, no cyanosis, no clubbing, ROM intact, no edema. [] Neurologic: Alert and oriented X 3, normal motor function, normal sensory function, no focal deficits noted. [] Psychologic: Affect normal, judgement normal, mood normal. [] Current Patient Data: Labs: Laboratory Tests Test 03/13/21 19:55 POC Urine HCG, Qualitative Hcg positive (Negative) Vital Signs: Vital Signs Date Time Temp Pulse Resp B/P (MAP) Pulse Ox O2 Delivery O2 Flow Rate FiO2 03/13/21 19:42 98.5 93 18 107/64 (78) 100 Room Air 98.5 EKG: EKG: [] EKG performed at 1949 heart rate [address] elevation no ST depression no acute RI Radiology/Procedures: Radiology/Procedures: [] Course & Med Decision Making: Course & Med Decision Making Pertinent Labs and Imaging studies reviewed. (See chart for details) [] Patient was evaluated for chief complaint. Work-up consisted of laboratory analysis and radiologic imaging. Patient's D-dimer resulted as elevated. Patient's was positive. Patient was admitted to the hospital for further work-up of syncope and dizziness. VQ scan ordered for the ame Williamson Disclaimer: Teri Disclaimer: This electronic medical record was generated, in whole or in part, using a voice recognition dictation system. Departure Departure Impression: Primary Impression: Syncopal episodes Additional Impression: Disposition: ADMITTED INPATIENT Admitting Physician: DUSTY Condition: STABLE Referrals: NO PCP (PCP) LADY RUBIN DO March 13, 2021 20:14
[2021-03-13 20:22] LABS: BACTERIA,URINE 0 /HPF (0-FEW); RBC,URINE OCC /HPF (0-2)
[2021-03-13 20:26] LABS: CALCIUM 8.3 mg/dL (8.5-10.1); CREATININE 0.8 mg/dL (0.6-1.0); GFR 88.9; POTASSIUM 3.6 mmol/L (3.5-5.1)
[2021-03-13 20:32] LABS: ALBUMIN 3.6 g/dL (3.4-5.0); ALBUMIN/GLOBULIN RATIO 1.2 (1.0-1.7); TOTAL BILIRUBIN 0.6 mg/dL (0.2-1.0); TOTAL PROTEIN 6.7 g/dL (6.4-8.2)
[2021-03-13] MEDS ORDERED: IV NORMAL SALINE 1000ML BAG 1,000 ML IV ONE (20:45)
[2021-03-14] VITALS (8 sets, daily range): BP systolic 85–106; BP diastolic 47–63
[2021-03-14] MEDS ORDERED: IV NORMAL SALINE 1000ML BAG 1,000 ML IV ONE
[2021-03-14] MEDS ORDERED: ONDANSETRON PF 4 MG/2 ML VIAL. IV PRN (00:30)
--- NOTE | 2021-03-14 03:39 | RAD ---
INDICATION: Reason: SYNCOPE / Spl. Instructions: / History: COMPARISON: None. FINDINGS: Single view of chest obtained. No focal airspace consolidation. Cardiomediastinal contour unremarkable. No acute osseous abnormality. IMPRESSION: * No focal airspace consolidation or edema. Electronically signed by: Vivek Benton MD (03/14/2021 3:37 AM) [id number]
--- NOTE | 2021-03-14 12:43 | NUR ---
SS following for discharge planning. SS reviewed pt chart and discussed with pt RN. Pt is from home and is currently on room air. Pt is six weeks . Gynecology and Pulmonology consulted. Pt having CT of chest today. SS will continue to follow for discharge planning.
--- NOTE | 2021-03-14 12:48 | PDOC2 ---
CONSULT Date of Consult Date of Consult DATE: 03/14/21 TIME: 12:41 Reason for Consult Reason for Consult: SOB Referring Physician Referring Physician: Dr. Medina Identification/Chief Complaint Chief Complaint SOB and syncope episodes Source Source: Chart review, Patient History of Present Illness Reason for Visit: 25 A3 @ 6 wks + 2 days by abdirashid today presented to ED with c/o syncope x 2 within the last 2 weeks. She denies any CP, H/A, vision changes or any activity that may cause her to lose consciousness. She was seen 1 month ago in clinic f or NOB visit. She is currently taking PNV, Vit C 2 tabs and ASA 81 mg daily. No vaginal bleeding or intense abd pain. Past Surgical History Past Surgical History: , Other (resection endometriosis) Current Problem List Problem List Problems Medical Problems: (1) Status: Acute (2) Syncopal episodes Status: Acute Current Medications Current Medications Current Medications Sodium Chloride 1,000 ml @ 1,000 mls/hr 1X ONCE IV Last administered on 03/13/21at 22:51; Start 03/13/21 at 20:45; Stop 03/13/21 at 21:44; Status DC Sodium Chloride 1,000 ml @ 1,000 mls/hr 1X ONCE IV Last administered on 03/14/21at 00:56; Start 03/14/21 at 00:00; Stop 03/14/21 at 00:59; Status DC Ondansetron HCl (Zofran) 4 mg PRN Q8HRS PRN IV NAUSEA/VOMITING; Start 03/14/21 at 00:30; Stop 03/15/21 at 00:29 Active Scripts Active Docusate Sodium 100 Mg Capsule 100 Mg PO PRN BID PRN Percocet 5-325 Mg Tablet (Oxycodone/Acetaminophen) 1 Each Tablet 2 Tab PO PRN Q4HRS PRN Ibuprofen 400 Mg Tablet 800 Mg PO PRN Q4HRS PRN Allergies Allergies: Coded Allergies: metronidazole (Verified Allergy, Intermediate, 02/24/19) ROS General: YES: Fatigue, Appetite; No: Chills, Night Sweats, Malaise, Other PSYCHOLOGICAL ROS: YES: Anxiety; No: Behavioral Disorder, Concentration difficultie, Decreased libido, Depression, Disorientation, Hallucinations, Hostility, Irritablity, Memory difficulties, Mood Swings, Obsessive thoughts, Physical abuse, Sexual abuse, Sleep disturbances, Suicidal ideation, Other Eyes: No Blurry vision, No Decreased vision, No Double vision, No Dry eyes, No Excessive tearing, No Eye Pain, No Itchy Eyes, No Loss of vision, No Photophobia, No Scotomata, No Uses contacts, No Uses glasses, No Other HEENT: No: Heacaches, Visual Changes, Hearing change, Nasal congestion, Nasal discharge, Oral lesions, Sinus pain, Sore Throat, Epistaxis, Sneezing, Snoring, Tinnitus, Vertigo, Vocal changes, Other ALLERGY AND IMMUNOLOGY: No: Hives, Insect Bite Sensitivity, Itchy/Watery Eyes, Nasal Congestion, Post Nasal Drip, Seasonal Allergies, Other Hematological and Lymphatic: No: Bleeding Problems, Blood Clots, Blood Transfusions, Brusing, Night Sweats, Pallor, Swollen Lymph Nodes, Other ENDOCRINE: No: Breast Changes, Galactorrhea, Hair Pattern Changes, Hot Flashes, Malaise/lethargy, Mood Swings, Palpitations, Polydipsia/polyuria, Skin Changes, Temperature Intolerance, Unexpected Weight Changes, Other Breast: No New/Changing Breast Lumps, No Nipple changes, No Nipple discharge, No Other Respiratory: YES: SOB with excertion Cardiovascular: No Chest Pain, No Palpitations, No Orthopnea, No Paroxysmal Noc. Dyspnea, No Edema, No Lt Headedness, No Other Gastrointestinal: Yes Nausea Skin: No Dry Skin, No Eczema, No Hair Changes, No Lumps, No Mole Changes, No Mottling, No Nail Changes, No Pruritus, No Rash, No Skin Lesion Changes, No Other, No Acne Physical Exam General: Alert, Oriented X3, Cooperative, mild distress HEENT: Atraumatic Lungs: Clear to auscultation Heart: Regular rate Abdomen: Normal bowel sounds, Soft, No tenderness, No masses Psych/Mental Status: Mental status NL MUSCULOSKELETAL: No joint tenderness Vitals VITALS Vital Signs Date Time Temp Pulse Resp B/P (MAP) Pulse Ox O2 Delivery O2 Flow Rate FiO2 03/14/21 08:00 Room Air 03/14/21 07:00 97.9 79 18 85/47 (60) 99 97.9 Labs Labs Laboratory Tests Test 03/13/21 19:52 03/13/21 19:55 5/16/21 19:58 03/13/21 23:03 Urine Collection Type Unknown Urine Color Yellow Urine Clarity Clear Urine pH 7.5 (<5.0-8.0) Urine Specific Aston >=1.030 (1.000-1.030) Urine Protein Negative mg/dL (NEG-TRACE) Urine Glucose (UA) Negative mg/dL (NEG) Urine Ketones (Stick) Trace mg/dL (NEG) Urine Blood Negative (NEG) Urine Nitrite Negative (NEG) Urine Bilirubin Negative (NEG) Urine Urobilinogen Dipstick 1.0 mg/dL (0.2 mg/dL) Urine Leukocyte Esterase Negative (NEG) Urine RBC Occ /HPF (0-2) Urine WBC 1-4 /HPF (0-4) Urine Squamous Epithelial Cells Mod /LPF Urine Bacteria 0 /HPF (0-FEW) Urine Mucus Marked /LPF Bedside Urine HCG, Qualitative Hcg positive (Negative) White Blood Count 7.7 x10^3/uL (4.0-11.0) Red Blood Count 4.70 x10^6/uL (3.50-5.40) Hemoglobin 13.4 g/dL (12.0-15.5) Hematocrit 38.8 % (36.0-47.0) Mean Corpuscular Volume 83 fL (79-100) Mean Corpuscular Hemoglobin 29 pg (25-35) Mean Corpuscular Hemoglobin Concent 35 g/dL (31-37) Red Cell Distribution Width 12.9 % (11.5-14.5) Platelet Count 238 x10^3/uL (140-400) Neutrophils (%) (Auto) 60 % (31-73) Lymphocytes (%) (Auto) 28 % (24-48) Monocytes (%) (Auto) 9 % (0-9) Eosinophils (%) (Auto) 2 % (0-3) Basophils (%) (Auto) 1 % (0-3) Neutrophils # (Auto) 4.6 x10^3/uL (1.8-7.7) Lymphocytes # (Auto) 2.2 x10^3/uL (1.0-4.8) Monocytes # (Auto) 0.7 x10^3/uL (0.0-1.1) Eosinophils # (Auto) 0.2 x10^3/uL (0.0-0.7) Basophils # (Auto) 0.0 x10^3/uL (0.0-0.2) Maternal Serum HCG Beta Subunit 93486 mIU/mL (0-5) Sodium Level 139 mmol/L (136-145) Potassium Level 3.6 mmol/L (3.5-5.1) Chloride Level 105 mmol/L (98-107) Carbon Dioxide Level 25 mmol/L (21-32) Anion Gap 9 (6-14) Blood Urea Nitrogen 8 mg/dL (7-20) Creatinine 0.8 mg/dL (0.6-1.0) Estimated GFR (Cockcroft-Gault) 88.9 BUN/Creatinine Ratio 10 (6-20) Glucose Level 89 mg/dL (70-99) Calcium Level 8.3 mg/dL (8.5-10.1) Total Bilirubin 0.6 mg/dL (0.2-1.0) Aspartate Amino Transf (AST/SGOT) 11 U/L (15-37) Alanine Aminotransferase (ALT/SGPT) 11 U/L (14-59) Alkaline Phosphatase 57 U/L (46-116) Troponin I Quantitative < 0.017 ng/mL (0.000-0.055) Total Protein 6.7 g/dL (6.4-8.2) Albumin 3.6 g/dL (3.4-5.0) Albumin/Globulin Ratio 1.2 (1.0-1.7) D-Dimer (Eve) 0.73 ug/mlFEU (0.00-0.50) Test 03/14/21 03:15 03/14/21 07:30 Troponin I Quantitative < 0.017 ng/mL (0.000-0.055) < 0.017 ng/mL (0.000-0.055) Laboratory Tests Test 03/13/21 19:52 03/13/21 19:55 03/13/21 19:58 03/13/21 23:03 Urine Collection Type Unknown Urine Color Yellow Urine Clarity Clear Urine pH 7.5 (<5.0-8.0) Urine Specific Aston >=1.030 (1.000-1.030) Urine Protein Negative mg/dL (NEG-TRACE) Urine Glucose (UA) Negative mg/dL (NEG) Urine Ketones (Stick) Trace mg/dL (NEG) Urine Blood Negative (NEG) Urine Nitrite Negative (NEG) Urine Bilirubin Negative (NEG) Urine Urobilinogen Dipstick 1.0 mg/dL (0.2 mg/dL) Urine Leukocyte Esterase Negative (NEG) Urine RBC Occ /HPF (0-2) Urine WBC 1-4 /HPF (0-4) Urine Squamous Epithelial Cells Mod /LPF Urine Bacteria 0 /HPF (0-FEW) Urine Mucus Marked /LPF Bedside Urine HCG, Qualitative Hcg positive (Negative) White Blood Count 7.7 x10^3/uL (4.0-11.0) Red Blood Count 4.70 x10^6/uL (3.50-5.40) Hemoglobin 13.4 g/dL (12.0-15.5) Hematocrit 38.8 % (36.0-47.0) Mean Corpuscular Volume 83 fL (79-100) Mean Corpuscular Hemoglobin 29 pg (25-35) Mean Corpuscular Hemoglobin Concent 35 g/dL (31-37) Red Cell Distribution Width 12.9 % (11.5-14.5) Platelet Count 238 x10^3/uL (140-400) Neutrophils (%) (Auto) 60 % (31-73) Lymphocytes (%) (Auto) 28 % (24-48) Monocytes (%) (Auto) 9 % (0-9) Eosinophils (%) (Auto) 2 % (0-3) Basophils (%) (Auto) 1 % (0-3) Neutrophils # (Auto) 4.6 x10^3/uL (1.8-7.7) Lymphocytes # (Auto) 2.2 x10^3/uL (1.0-4.8) Monocytes # (Auto) 0.7 x10^3/uL (0.0-1.1) Eosinophils # (Auto) 0.2 x10^3/uL (0.0-0.7) Basophils # (Auto) 0.0 x10^3/uL (0.0-0.2) Maternal Serum HCG Beta Subunit 82247 mIU/mL (0-5) Sodium Level 139 mmol/L (136-145) Potassium Level 3.6 mmol/L (3.5-5.1) Chloride Level 105 mmol/L (98-107) Carbon Dioxide Level 25 mmol/L (21-32) Anion Gap 9 (6-14) Blood Urea Nitrogen 8 mg/dL (7-20) Creatinine 0.8 mg/dL (0.6-1.0) Estimated GFR (Cockcroft-Gault) 88.9 BUN/Creatinine Ratio 10 (6-20) Glucose Level 89 mg/dL (70-99) Calcium Level 8.3 mg/dL (8.5-10.1) Total Bilirubin 0.6 mg/dL (0.2-1.0) Aspartate Amino Transf (AST/SGOT) 11 U/L (15-37) Alanine Aminotransferase (ALT/SGPT) 11 U/L (14-59) Alkaline Phosphatase 57 U/L (46-116) Troponin I Quantitative < 0.017 ng/mL (0.000-0.055) Total Protein 6.7 g/dL (6.4-8.2) Albumin 3.6 g/dL (3.4-5.0) Albumin/Globulin Ratio 1.2 (1.0-1.7) D-Dimer (Eve) 0.73 ug/mlFEU (0.00-0.50) Test 03/14/21 03:15 03/14/21 07:30 Troponin I Quantitative < 0.017 ng/mL (0.000-0.055) < 0.017 ng/mL (0.000-0.055) Assessment/Plan Assessment/Plan A: 6 wks IUP SOB: rule out PE P: Counseled on V/Q scan vs. CT angiogram. Pt. desires CT angiogram to rule out PE. If PE present, then recommend Lovenox for anticoagulant treatment in . Recommend Zofran for nausea. Will continue to follow. Thanks for consut. MICHAEL FERNANDEZ Jr, MD March 14, 2021 12:48
--- NOTE | 2021-03-14 12:49 | SSS ---
ADMIT DATE: 03/14/2021 CHIEF COMPLAINT: Syncope. HISTORY OF PRESENT ILLNESS: The patient is a pleasant 25-year-old female who presented to the ER last night with syncopal episode, this has been occurring for a couple of days. She has associated nausea. She has associated lightheadedness. She increased her home medications but that was not working. While in the ER, they noticed that she had elevated D-dimer of 0.73. She also has a positive urine test with a beta hCG level of 54,103. The patient is now on the telemetry floor where she has been examined. PAST MEDICAL HISTORY: Endometriosis, polycystic ovary, . ALLERGIES: METRONIDAZOLE. FAMILY HISTORY: Diabetes. SOCIAL HISTORY: She does not drink, smoke or take drugs. She takes care of older people. MEDICATIONS: Reviewed, please refer to the MRAD. REVIEW OF SYSTEMS: GENERAL: No history of weight change, weakness or fevers. SKIN: No bruising, hair changes or rashes. EYES: No blurred, double or loss of vision. NOSE AND THROAT: No history of nosebleeds, hoarseness or sore throat. HEART: No history of palpitations, chest pain or shortness of breath on exertion. LUNGS: Denies cough, hemoptysis, wheezing or shortness of breath. GASTROINTESTINAL: Denies changes in appetite, nausea, vomiting, diarrhea or constipation. GENITOURINARY: No history of frequency, urgency, hesitancy or nocturia. NEUROLOGIC: Denies history of numbness, tingling, tremor or weakness. PSYCHIATRIC: No history of panic, anxiety or depression. ENDOCRINE: No history of heat or cold intolerance, polyuria or polydipsia. EXTREMITIES: Denies muscle weakness, joint pain, pain on walking or stiffness. PHYSICAL EXAMINATION: VITALS: Within normal limits and are stable. GENERAL: No apparent distress. Alert and oriented. HEENT: Normal cephalic atraumatic, external auditory canals are patent EYES: Extraocular muscles are intact, pupils are equally round and reactive to light and accommodation MUSCULOSKELETAL: Well developed, well nourished, good range of motion ENDOCRINE: No thyromegaly was palpated LYMPHATICS: No cervical chain or axillary nodes were noted HEMATOPOIETIC: No bruising NECK: Supple, no JVD, no thyromegaly was noted. LUNGS: Clear to auscultation in all lung zavala without rhonchi or wheezing. HEART: RRR, S1, S2 present. Peripheral pulses intact, no obvious murmurs were noted. ABDOMEN: Soft, nontender. Positive bowel sounds no organomegaly, normal bowel sounds. EXTREMITIES: Without any cyanosis, clubbing, or edema. Pedal pulses intact, Homans sign is negative. NEUROLOGIC: Normal speech, normal tone. A and O x 3, moves all extremities, no obvious focal deficits. PSYCHIATRIC: Normal affect, normal mood. Stable. SKIN: No ulcerations or rashes, good skin turgor, no jaundice. VASCULAR: Good capillary refill, neurovascular bundle appears to be intact. IMAGING: Chest x-ray is negative. LABORATORY DATA: Hematology is normal. Electrolytes are normal. D-dimer 0.73. Urinalysis negative. Beta hCG 54,103. ASSESSMENT AND PLAN: Syncope and elevated D-dimer and incidental finding of new . The patient has been admitted. We have consulted Dr. Murry. We will consult Dr. Mackey regarding the possibility of pulmonary embolism. Cardiac monitoring, home medications, DVT prophylaxis. Full code. YULISA/RAJIV/LESA DR: YULISA/charmaine TID: [id number]
[2021-03-14] MEDS ORDERED: ONDANSETRON ODT 4 MG TAB.RAPDIS. PO PRN (13:00)
[2021-03-14] MEDS ORDERED: CONTRAST GIVEN. MC PRN (13:15)
--- NOTE | 2021-03-14 13:15 | CONS ---
DATE OF CONSULTATION: 03/14/2021 PULMONARY CONSULTATION ATTENDING PHYSICIAN: Jostin Dinh MD REASON FOR CONSULTATION: Syncope. HISTORY OF PRESENT ILLNESS: The patient is a 25-year-old female who is 6 weeks . She was brought into the hospital after she had a syncopal episode yesterday. She said she passed out in the bathroom. The patient states she had a similar episode about 2 weeks ago at home. She has been eating and drinking well. She denies any substance abuse. She is currently on room air and saturations are in the high 90s. Her chest x-ray did not reveal any infiltrates. I have been asked to see her for further evaluation. Upon further questioning, the patient states she had three miscarriages before. She is currently with 6 weeks. Her D-dimer was very mildly elevated at 0.73. Denies any significant shortness of breath. She says she has some vague chest pain. She has never been tested for lupus or antiphospholipid antibodies. PAST MEDICAL HISTORY: Significant for history of DVT, after the duane of child 5 yrs ago . She is 6 weeks . History of endometriosis, history of PCOS, history of three miscarriages. PAST SURGICAL HISTORY: x 2 for endometriosis. ALLERGIES: FLAGYL. REVIEW OF SYSTEMS: A 12-point system obtained. Pertinent positives and negatives discussed in my presence illness, otherwise noncontributory. All systems that were negative were reviewed as well. FAMILY HISTORY: Noncontributory to lungs. PHYSICAL EXAMINATION: VITAL SIGNS: Shows a blood pressure of 106 systolic to 96 systolic. Pulse ox 100%. Afebrile. NECK: Supple. LUNGS: Clear. CARDIOVASCULAR: With a regular rate. ABDOMEN: Soft and nontender. EXTREMITIES: With no pitting edema. No tenderness. LABORATORY DATA: Labs were reviewed. D-dimer 0.73. Sodium 139, potassium 3.6, BUN and creatinine normal. White cell count 7.7. IMPRESSION: 1. Syncopal episode x 2 in a patient who has history of miscarriages x 3 and a mildly elevated D-dimer. The possibility of thromboembolic disease cannot be ruled out. She should also be ruled out for lupus and antiphospholipid antibodies. 2. No significant tobacco history. 3. No significant substance abuse. 4. Six weeks . RECOMMENDATIONS: 1. I have discussed with Dr. Murry, her cloth finishing range back tender. He recommended to discontinue V/Q scan and instead do CTA chest. The risks to the baby are minimal. 2. We will do an outpatient antiphospholipid antibody and lupus panel. 3. Discussed with RN and discussed with Dr. Murry. We will also obtain venous Dopplers of lower extremities. Discussed with RN and Dr. Murry and we will follow along with you. DARREN DR: Vicenta TID: [id number] MTDD
[2021-03-14] MEDS ORDERED: IOHEXOL 350 MG/ML 100 ML VIAL. IV ONE (13:30)
--- NOTE | 2021-03-14 13:41 | RAD ---
Obstetrical ultrasound first trimester 03/14/2021. Reason for exam: Uncertain dates. Scanning was performed transabdominally. This shows a retroverted uterus containing a gestational sac . Within the sac is an embryo with heart rate of 117 bpm. Estimated age of the embryo by crown-rump l ength measurement would be 6 weeks 2 days, giving BASIL of 11/05/2021. The gestational sac is normal in a ppearance, and a yolk sac is visible. There is no adjacent hemorrhage. Both ovaries are seen and appear normal. There is no adnexal mass or free fluid. IMPRESSION: There is a living intrauterine embryo with estimated age by ultrasound measurements of 6 weeks 2 days. Electronically signed by: Zenon Sheffield Jr., MD (03/14/2021 1:39 PM) [id number]
--- NOTE | 2021-03-14 13:44 | RAD ---
EXAM: CT angiography of the chest with intravenous contrast. HISTORY: Elevated d-dimer. Syncope. TECHNIQUE: Computed tomographic images of the chest were obtained following the administration of int ravenous contrast according to angiography protocol. Multiplanar reformatting was performed and three dimensional maximum intensity projection images were obtained. The patient is reportedly in the firs t trimester . This exam was deemed medically necessary by the referring physician. The patie nt was shielded. *One or more of the following individualized dose reduction techniques were utilized for this examina tion: 1. Automated exposure control. 2. Adjustment of the mA and/or kV according to patient size. 3. Use of iterative reconstruction technique. COMPARISON: None. FINDINGS: There is no evidence of pulmonary vessels. There is no aortic aneurysm or dissection. There is soft tissue within the anterior mediastinum due to residual thymus. This is appropriate for patie nt age. There is no lymphadenopathy. There is no pneumothorax. There is no pleural effusion. There is no infiltrate. There is no suspicious pulmonary nodule. There is no acute finding involving the visu alized upper abdomen or osseous structures. IMPRESSION: No evidence of pulmonary embolism or alternative acute thoracic finding. Electronically signed by: Rowena Acosta MD (03/14/2021 1:41 PM) [id number]
--- NOTE | 2021-03-14 16:19 | PDOC2 ---
ARISTEO ALVAREZ BONE TENDER 03/14/21 1619: CARDIAC CONSULT DATE OF CONSULT Date of Consult DATE: 03/14/21 TIME: 16:09 REASON FOR CONSULT Reason for Consult: syncope, hypotension REFERRING PHYSICIAN Referring Physician: Dr. Mackey SOURCE Source: Chart review, Patient HISTORY OF PRESENT ILLNESS HISTORY OF PRESENT ILLNESS This is a 25 yo female, who present to dizziness and syncopal episode. Urine Hcg +. Confirmed 6 weeks gestation by US. Has history of multiple miscarriages. 2 living children. Patient reports having syncopal episode approximately two weeks ago. Reports she stood up and was walking, felt dizzy and had blurred vision and subsequently passed out. Reports brief loss of consciousness at that time. Hit her had on the door, but denies any injury. The day of arrival, had another syncopal episode. Reports she got up of the couch and began feeling dizzy. Walked to go to the bathroom and back more dizzy and then passed out. Reports she could feel herself about to pass out so she was able to somewhat break her fall. Reports history of thyroid disease. Was previously treated, but reports due to fluctuating levels, she stopped taking her medications. Also reports experiencing intermittent palpitations; feeling like her heart is racing. Has seen lance crewmember/mlrs sergeant is past, but unsure what workup was complete. Denies having heart monitor. Was supposed to have referral to see lance crewmember/mlrs sergeant, but has not been called to arrange appointment. PAST MEDICAL HISTORY Past Medical History endometriosis, PCOS, multiple miscarriages, DVT, depression, hypothyroidism, palpitations. Pulmonary: No pertinent hx GI: No pertinent hx PAST SURGICAL HISTORY Past Surgical History: FAMILY HISTORY Family History: Other (noncontributory ) SOCIAL HISTORY Smoke: No ALCOHOL: none Drugs: None Lives: with Family CURRENT MEDICATIONS CURRENT MEDICATIONS Current Medications Medications (Trade) Dose Ordered Sig/Justyn Route PRN Reason Start Time Stop Time Status Last Admin Dose Admin Sodium Chloride 1,000 ml @ 1,000 mls/hr 1X ONCE IV 03/13/21 20:45 03/13/21 21:44 DC 03/13/21 22:51 Sodium Chloride 1,000 ml @ 1,000 mls/hr 1X ONCE IV 03/14/21 00:00 03/14/21 00:59 DC 03/14/21 00:56 Ondansetron HCl (Zofran Odt) 4 mg PRN Q6HRS PRN PO NAUSEA/VOMITING 03/14/21 13:00 03/14/21 13:09 Iohexol (Omnipaque 350 Mg/ml) 85 ml 1X ONCE IV 03/14/21 13:30 03/14/21 13:31 DC 03/14/21 13:29 ALLERGIES ALLERGIES: Coded Allergies: metronidazole (Verified Allergy, Intermediate, 02/24/19) ROS Review of System 14 point ROS conducted with pertinent positives noted above in hPI PHYSICAL EXAM General: Alert, Oriented X3, Cooperative, No acute distress HEENT: Atraumatic Lungs: Clear to auscultation Heart: Regular rate Abdomen: Soft Extremities: No edema, Normal pulses Skin: No significant lesion Neuro: Normal speech, Sensation intact Psych/Mental Status: Mental status NL, Mood NL MUSCULOSKELETAL: Osteoarthritic changes both hands VITALS/I&O VITALS/I&O: Vital Signs Date Time Temp Pulse Resp B/P (MAP) Pulse Ox O2 Delivery O2 Flow Rate FiO2 03/14/21 15:10 104 97/63 (74) 03/14/21 15:00 98.6 18 99 Room Air 98.6 I & O 03/13/21 03/13/21 03/14/21 15:00 23:00 07:00 Intake Total 1000 ml Balance 1000 ml LABS Lab: Laboratory Tests Test 03/13/21 19:52 03/13/21 19:55 03/13/21 19:58 03/13/21 23:03 Urine Collection Type Unknown Urine Color Yellow Urine Clarity Clear Urine pH 7.5 (<5.0-8.0) Urine Specific Donaldson >=1.030 (1.000-1.030) Urine Protein Negative mg/dL (NEG-TRACE) Urine Glucose (UA) Negative mg/dL (NEG) Urine Ketones (Stick) Trace mg/dL (NEG) Urine Blood Negative (NEG) Urine Nitrite Negative (NEG) Urine Bilirubin Negative (NEG) Urine Urobilinogen Dipstick 1.0 mg/dL (0.2 mg/dL) Urine Leukocyte Esterase Negative (NEG) Urine RBC Occ /HPF (0-2) Urine WBC 1-4 /HPF (0-4) Urine Squamous Epithelial Cells Mod /LPF Urine Bacteria 0 /HPF (0-FEW) Urine Mucus Marked /LPF POC Urine HCG, Qualitative Hcg positive (Negative) White Blood Count 7.7 x10^3/uL (4.0-11.0) Red Blood Count 4.70 x10^6/uL (3.50-5.40) Hemoglobin 13.4 g/dL (12.0-15.5) Hematocrit 38.8 % (36.0-47.0) Mean Corpuscular Volume 83 fL (79-100) Mean Corpuscular Hemoglobin 29 pg (25-35) Mean Corpuscular Hemoglobin Concent 35 g/dL (31-37) Red Cell Distribution Width 12.9 % (11.5-14.5) Platelet Count 238 x10^3/uL (140-400) Neutrophils (%) (Auto) 60 % (31-73) Lymphocytes (%) (Auto) 28 % (24-48) Monocytes (%) (Auto) 9 % (0-9) Eosinophils (%) (Auto) 2 % (0-3) Basophils (%) (Auto) 1 % (0-3) Neutrophils # (Auto) 4.6 x10^3/uL (1.8-7.7) Lymphocytes # (Auto) 2.2 x10^3/uL (1.0-4.8) Monocytes # (Auto) 0.7 x10^3/uL (0.0-1.1) Eosinophils # (Auto) 0.2 x10^3/uL (0.0-0.7) Basophils # (Auto) 0.0 x10^3/uL (0.0-0.2) Maternal Serum HCG Beta Subunit 48359 mIU/mL (0-5) H Sodium Level 139 mmol/L (136-145) Potassium Level 3.6 mmol/L (3.5-5.1) Chloride Level 105 mmol/L (98-107) Carbon Dioxide Level 25 mmol/L (21-32) Anion Gap 9 (6-14) Blood Urea Nitrogen 8 mg/dL (7-20) Creatinine 0.8 mg/dL (0.6-1.0) Estimated GFR (Cockcroft-Gault) 88.9 BUN/Creatinine Ratio 10 (6-20) Glucose Level 89 mg/dL (70-99) Calcium Level 8.3 mg/dL (8.5-10.1) L Total Bilirubin 0.6 mg/dL (0.2-1.0) Aspartate Amino Transferase (AST) 11 U/L (15-37) L Alanine Aminotransferase (ALT) 11 U/L (14-59) L Alkaline Phosphatase 57 U/L (46-116) Troponin I Quantitative < 0.017 ng/mL (0.000-0.055) Total Protein 6.7 g/dL (6.4-8.2) Albumin 3.6 g/dL (3.4-5.0) Albumin/Globulin Ratio 1.2 (1.0-1.7) D-Dimer (Eve) 0.73 ug/mlFEU (0.00-0.50) H Test 03/14/21 03:15 03/14/21 07:30 Troponin I Quantitative < 0.017 ng/mL (0.000-0.055) < 0.017 ng/mL (0.000-0.055) Laboratory Tests 03/13/21 19:58 Laboratory Tests 03/13/21 19:58 ASSESSMENT/PLAN ASSESSMENT/PLAN 1. Dizziness with syncope x2; blood pressure low end. No orthostasis noted. s/p IVFs 2. Palpitations; no tachyarrhythmias noted on tele. 3. ; 6 week gestation 4. Elevated d-dimer; CTA negative for PE 5. H/o DVT with first 6. H/o thyroid disease Recommendations Echo to assess to LV systolic function, rule out cardiac anomalies TSH level Will arranged outpatient event monitor Supportive care HOMERO SIMON MD 03/15/212117: CARDIAC CONSULT ASSESSMENT/PLAN ASSESSMENT/PLAN Pt. seen and examined. Agree with above [employer] WEB DEVELOPMENT CONSULTANT note late entry for 03/14/21 ARISTEO ALVAREZ APRN March 14, 2021 16:19 HOMERO SIMON MD March 15, 2021 21:18
--- NOTE | 2021-03-14 23:52 | RAD ---
INDICATION: Reason: history of DVT, elevated d-dimer, b/l knee pain / Spl. Instructions: / History: COMPARISON: None. TECHNIQUE: Grayscale, color and doppler ultrasound images were obtained of the bilateral lower extrem ity venous vasculature. RIGHT: No thrombus identified in the common femoral vein, femoral vein, popliteal vein or visualized calf ve ins. LEFT: No thrombus identified in the common femoral vein, femoral vein, popliteal vein or visualized calf ve ins. Prominent lymph node in the left groin with thin cortex measuring 9 mm short axis. IMPRESSION: * No thrombus identified in deep venous system of bilateral lower extremities. Electronically signed by: Vivek Benton MD (03/14/2021 11:50 PM) [id number]
[2021-03-15 03:31] VITALS: BP 83/43
[2021-03-15 07:00] VITALS: BP 80/46
[2021-03-15 09:11] VITALS: BP 100/64
--- NOTE | 2021-03-15 10:48 | PDOC ---
PULMONARY PROGRESS NOTES DATE: 03/15/21 TIME: 10:46 Subjective no soa Vitals Vital Signs Date Time Temp Pulse Resp B/P (MAP) Pulse Ox O2 Delivery O2 Flow Rate FiO2 03/15/21 09:11 100/64 (76) 03/15/21 08:00 Room Air 03/15/21 07:00 98.9 74 18 98 98.9 General: Alert Lungs: Clear Cardiovascular: S1 Abdomen: Soft Neuro Exam: Alert Extremities: No Edema Skin: Warm Labs Laboratory Tests Test 03/13/21 19:52 03/13/21 19:55 03/13/21 19:58 03/13/21 23:03 Urine Collection Type Unknown Urine Color Yellow Urine Clarity Clear Urine pH 7.5 (<5.0-8.0) Urine Specific [place] >=1.030 (1.000-1.030) Urine Protein Negative mg/dL (NEG-TRACE) Urine Glucose (UA) Negative mg/dL (NEG) Urine Ketones (Stick) Trace mg/dL (NEG) Urine Blood Negative (NEG) Urine Nitrite Negative (NEG) Urine Bilirubin Negative (NEG) Urine Urobilinogen Dipstick 1.0 mg/dL (0.2 mg/dL) Urine Leukocyte Esterase Negative (NEG) Urine RBC Occ /HPF (0-2) Urine WBC 1-4 /HPF (0-4) Urine Squamous Epithelial Cells Mod /LPF Urine Bacteria 0 /HPF (0-FEW) Urine Mucus Marked /LPF Bedside Urine HCG, Qualitative Hcg positive (Negative) White Blood Count 7.7 x10^3/uL (4.0-11.0) Red Blood Count 4.70 x10^6/uL (3.50-5.40) Hemoglobin 13.4 g/dL (12.0-15.5) Hematocrit 38.8 % (36.0-47.0) Mean Corpuscular Volume 83 fL (79-100) Mean Corpuscular Hemoglobin 29 pg (25-35) Mean Corpuscular Hemoglobin Concent 35 g/dL (31-37) Red Cell Distribution Width 12.9 % (11.5-14.5) Platelet Count 238 x10^3/uL (140-400) Neutrophils (%) (Auto) 60 % (31-73) Lymphocytes (%) (Auto) 28 % (24-48) Monocytes (%) (Auto) 9 % (0-9) Eosinophils (%) (Auto) 2 % (0-3) Basophils (%) (Auto) 1 % (0-3) Neutrophils # (Auto) 4.6 x10^3/uL (1.8-7.7) Lymphocytes # (Auto) 2.2 x10^3/uL (1.0-4.8) Monocytes # (Auto) 0.7 x10^3/uL (0.0-1.1) Eosinophils # (Auto) 0.2 x10^3/uL (0.0-0.7) Basophils # (Auto) 0.0 x10^3/uL (0.0-0.2) Maternal Serum HCG Beta Subunit 76958 mIU/mL (0-5) Sodium Level 139 mmol/L (136-145) Potassium Level 3.6 mmol/L (3.5-5.1) Chloride Level 105 mmol/L (98-107) Carbon Dioxide Level 25 mmol/L (21-32) Anion Gap 9 (6-14) Blood Urea Nitrogen 8 mg/dL (7-20) Creatinine 0.8 mg/dL (0.6-1.0) Estimated GFR (Cockcroft-Gault) 88.9 BUN/Creatinine Ratio 10 (6-20) Glucose Level 89 mg/dL (70-99) Calcium Level 8.3 mg/dL (8.5-10.1) Total Bilirubin 0.6 mg/dL (0.2-1.0) Aspartate Amino Transf (AST/SGOT) 11 U/L (15-37) Alanine Aminotransferase (ALT/SGPT) 11 U/L (14-59) Alkaline Phosphatase 57 U/L (46-116) Troponin I Quantitative < 0.017 ng/mL (0.000-0.055) Total Protein 6.7 g/dL (6.4-8.2) Albumin 3.6 g/dL (3.4-5.0) Albumin/Globulin Ratio 1.2 (1.0-1.7) D-Dimer (Eve) 0.73 ug/mlFEU (0.00-0.50) Test 03/14/21 03:15 03/14/21 07:30 Troponin I Quantitative < 0.017 ng/mL (0.000-0.055) < 0.017 ng/mL (0.000-0.055) Thyroid Stimulating Hormone (TSH) 4.085 uIU/mL (0.358-3.74) Medications Active Scripts Medications Dose Route/Sig Max Daily Dose Days Date Category Docusate Sodium 100 Mg Capsule 100 Mg PO PRN BID PRN 08/17/19 Rx Percocet 5-325 Mg Tablet (Oxycodone/Acetaminophen) 1 Each Tablet 2 Tab PO PRN Q4HRS PRN 08/17/19 Rx Ibuprofen 400 Mg Tablet 800 Mg PO PRN Q4HRS PRN 08/17/19 Rx Impression . 1. Syncopal episode x 2 in a patient who has history of miscarriages x 3 and a mildly elevated D-dimer. No evidence of PE/DVT . She should also be ruled out for lupus and antiphospholipid antibodies. 2. No significant tobacco history. 3. No significant substance abuse. 4. Six weeks . Plan . 1. NO PULMONARY ETIOLOGY OF SYNCOPY 2. Rec outpatient antiphospholipid antibody and lupus panel. 3. Discussed with RN 4. will sign off 5. follow cardiology rec for syncopy MARCIN HENRIQUEZ MD March 15, 2021 10:48
[2021-03-15 11:00] VITALS: BP 82/38
--- NOTE | 2021-03-15 11:20 | NUR ---
SS following up with discharge planning. SS reviewed pt chart and discussed with pt RN. Pt is currently on room air. Discharge order on the chart for home with self care.
--- NOTE | 2021-03-15 11:23 | PDOC ---
OB Progress Note Date of Service 03/15/21 Time of Evaluation 1120 Problem List Problems Medical Problems: (1) Status: Acute (2) Syncopal episodes Status: Acute Notes Pt. feeling well. No complaints today. Reports nml findings of CT angiogram. Pt. to have echocardiogram today. Lab Laboratory Tests Test 03/13/21 19:52 03/13/21 19:55 03/13/21 19:58 03/13/21 23:03 Urine Collection Type Unknown Urine Color Yellow Urine Clarity Clear Urine pH 7.5 (<5.0-8.0) Urine Specific [place] >=1.030 (1.000-1.030) Urine Protein Negative mg/dL (NEG-TRACE) Urine Glucose (UA) Negative mg/dL (NEG) Urine Ketones (Stick) Trace mg/dL (NEG) Urine Blood Negative (NEG) Urine Nitrite Negative (NEG) Urine Bilirubin Negative (NEG) Urine Urobilinogen Dipstick 1.0 mg/dL (0.2 mg/dL) Urine Leukocyte Esterase Negative (NEG) Urine RBC Occ /HPF (0-2) Urine WBC 1-4 /HPF (0-4) Urine Squamous Epithelial Cells Mod /LPF Urine Bacteria 0 /HPF (0-FEW) Urine Mucus Marked /LPF Bedside Urine HCG, Qualitative Hcg positive (Negative) White Blood Count 7.7 x10^3/uL (4.0-11.0) Red Blood Count 4.70 x10^6/uL (3.50-5.40) Hemoglobin 13.4 g/dL (12.0-15.5) Hematocrit 38.8 % (36.0-47.0) Mean Corpuscular Volume 83 fL (79-100) Mean Corpuscular Hemoglobin 29 pg (25-35) Mean Corpuscular Hemoglobin Concent 35 g/dL (31-37) Red Cell Distribution Width 12.9 % (11.5-14.5) Platelet Count 238 x10^3/uL (140-400) Neutrophils (%) (Auto) 60 % (31-73) Lymphocytes (%) (Auto) 28 % (24-48) Monocytes (%) (Auto) 9 % (0-9) Eosinophils (%) (Auto) 2 % (0-3) Basophils (%) (Auto) 1 % (0-3) Neutrophils # (Auto) 4.6 x10^3/uL (1.8-7.7) Lymphocytes # (Auto) 2.2 x10^3/uL (1.0-4.8) Monocytes # (Auto) 0.7 x10^3/uL (0.0-1.1) Eosinophils # (Auto) 0.2 x10^3/uL (0.0-0.7) Basophils # (Auto) 0.0 x10^3/uL (0.0-0.2) Maternal Serum HCG Beta Subunit 65561 mIU/mL (0-5) Sodium Level 139 mmol/L (136-145) Potassium Level 3.6 mmol/L (3.5-5.1) Chloride Level 105 mmol/L (98-107) Carbon Dioxide Level 25 mmol/L (21-32) Anion Gap 9 (6-14) Blood Urea Nitrogen 8 mg/dL (7-20) Creatinine 0.8 mg/dL (0.6-1.0) Estimated GFR (Cockcroft-Gault) 88.9 BUN/Creatinine Ratio 10 (6-20) Glucose Level 89 mg/dL (70-99) Calcium Level 8.3 mg/dL (8.5-10.1) Total Bilirubin 0.6 mg/dL (0.2-1.0) Aspartate Amino Transf (AST/SGOT) 11 U/L (15-37) Alanine Aminotransferase (ALT/SGPT) 11 U/L (14-59) Alkaline Phosphatase 57 U/L (46-116) Troponin I Quantitative < 0.017 ng/mL (0.000-0.055) Total Protein 6.7 g/dL (6.4-8.2) Albumin 3.6 g/dL (3.4-5.0) Albumin/Globulin Ratio 1.2 (1.0-1.7) D-Dimer (Eve) 0.73 ug/mlFEU (0.00-0.50) Test 03/14/21 03:15 03/14/21 07:30 Troponin I Quantitative < 0.017 ng/mL (0.000-0.055) < 0.017 ng/mL (0.000-0.055) Thyroid Stimulating Hormone (TSH) 4.085 uIU/mL (0.358-3.74) Medications Current Medications Sodium Chloride 1,000 ml @ 1,000 mls/hr 1X ONCE IV Last administered on 03/13at 22:51; Start 03/13/21 at 20:45; Stop 03/13/21 at 21:44; Status DC Sodium Chloride 1,000 ml @ 1,000 mls/hr 1X ONCE IV Last administered on 03/14/21at 00:56; Start 03/14/21 at 00:00; Stop 03/14/21 at 00:59; Status DC Ondansetron HCl (Zofran) 4 mg PRN Q8HRS PRN IV NAUSEA/VOMITING; Start 03/14/21 at 00:30; Stop 03/15/21 at 00:29; Status DC Ondansetron HCl (Zofran Odt) 4 mg PRN Q6HRS PRN PO NAUSEA/VOMITING Last administered on 03/14/21at 13:09; Start 03/14/21 at 13:00 Iohexol (Omnipaque 350 Mg/ml) 85 ml 1X ONCE IV Last administered on 03/14/21at 13:29; Start 03/14/21 at 13:30; Stop 03/14/21 at 13:31; Status DC Info (CONTRAST GIVEN -- Rx MONITORING) 1 each PRN DAILY PRN MC SEE COMMENTS; Start 03/14/21 at 13:15; Stop 03/16/21 at 13:14 Active Scripts Active Docusate Sodium 100 Mg Capsule 100 Mg PO PRN BID PRN Exam Abd: soft, non tender, fundus firm Lungs: CTA nikkie. Assessment 6 wks IUP SOB: resolved No evidence PE Syncopal episode at home Plan of Care: Continue current Tx, Mgmt (If echocardiogram negative, then okay to d/c home. F/u as scheduled in clinic.) MICHAEL FERNANDEZ Jr, MD March 15, 2021 11:23
--- NOTE | 2021-03-15 11:34 | PDOC ---
[facility] PROGRESS NOTE Date of Service DOS: DATE: 03/15/21 TIME: 11:32 Chief Complaint Chief Complaint Syncope History of Present Illness History of Present Illness The patient is a pleasant 25-year-old female who presented to the ER last night with syncopal episode, this has been occurring for a couple of days. She has associated nausea. She has associated lightheadedness. She increased her home medications but that was not working. While in the ER, they noticed that she had elevated D-dimer of 0.73. She also has a positive urine test with a beta hCG level of 54,103. The patient is now on the telemetry floor where she has been examined. 03/15/2021 Patient was seen and examined today. She is improving and resting well in bed with no complaints. Discussed continuing to monitor per instructions from pulm and cardio with orders to follow-up with OBGYN as outpatient. Discharge disposition pending results of echocardiogram alter today. Discussed care with RN and case management. Chart reviewed. Vitals/I&O Vitals/I&O: Vital Signs Date Time Temp Pulse Resp B/P (MAP) Pulse Ox O2 Delivery O2 Flow Rate FiO2 03/15/21 09:11 100/64 (76) 03/15/21 08:00 Room Air 03/15/21 07:00 98.9 74 18 98 98.9 I & O 03/14/21 03/14/21 03/15/21 14:59 22:59 06:59 Intake Total 240 ml 0 ml Output Total 2000 ml Balance -1760 ml 0 ml Physical Exam General: Alert, Oriented X3, Cooperative, No acute distress Heart: Regular rate, Normal S1, Normal S2 Lungs: Clear Abdomen: Soft Extremities: No clubbing, No edema, Normal pulses Skin: No rashes, No significant lesion Review of Systems Review of Systems: No headaches No change in vision Assessment and Plan Assessmemt and Plan Syncope - 6w2d via ultrasound Elevated D-dimer Plan NOB care -0 consulting OBGYN Appreciate pulm and cardio input Echocardiogram today Cardiac monitoring Continue home meds DVT prophylaxis Full Code Discharge disposition pending Follow-up Outpatient OBGYN care Problems Medical Problems: (1) Status: Acute (2) Syncopal episodes Status: Acute Comment Review of Relevant I have reviewed the following items shakira (where applicable) has been applied. Medications: Current Medications Medications (Trade) Dose Ordered Sig/Justyn Route PRN Reason Start Time Stop Time Status Last Admin Dose Admin Ondansetron HCl (Zofran Odt) 4 mg PRN Q6HRS PRN PO NAUSEA/VOMITING 03/14/21 13:00 03/14/21 13:09 Iohexol (Omnipaque 350 Mg/ml) 85 ml 1X ONCE IV 03/14/21 13:30 03/14/21 13:31 DC 03/14/21 13:29 Justifications for Admission Other Justification BOBBI DEL ANGEL III DO March 15, 2021 11:33
--- NOTE | 2021-03-15 11:46 | DS ---
DATE OF DISCHARGE: 03/15/2021 ADMITTING DIAGNOSIS: Syncope. DISCHARGE DIAGNOSES: Resolving syncope, new , history of previous deep vein thrombosis, history of miscarriages. 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 PROCEDURES: None. HOSPITAL COURSE: The patient is a pleasant 25-year-old female who presented with a syncopal episode. Her D-dimer was slightly high at 0.7. We consulted Pulmonary. It is felt she probably did not have a PE. Her pressures have been a little low. This morning they have been ranging from 100-80 systolically, but clinically she is doing well. She wants to go home. I saw and examined her this morning. We are going to let her go home if okay with consultants. DISPOSITION: Home. ACTIVITY: As tolerated. DIET: Low sodium. DISCHARGE MEDICATIONS: Please see the MRAD. Home meds, which include docusate 100 mg a day and I told her to take vitamins [id number]. Total time 32 minutes. YULISA/SHERIN DR: Chris TID: [id number]
--- NOTE | 2021-03-15 14:10 | CARD ---
MR#: [id number] Date of Study: 03/15/2021 Ordering Physician: ARISTEO ALVAREZ, Referring Physician: ARISTEO ALVAREZ, Tech: Jayla Gunn [facility] APPROVED REPORT EXAM: Two-dimensional and M-mode echocardiogram with Doppler and color Doppler. Other Information Quality : AverageHR: 69bpm Rhythm : NSR INDICATION Syncope 2D DIMENSIONS RVDd2.0 (2.9-3.5cm)IVSd0.9 (0.7-1.1cm) LVDd4.5 (3.9-5.9cm)PWd0.8 (0.7-1.1cm) IVSs1.3 (0.8-1.2cm)LVDs2.8 (2.5-4.0cm) FS (%) 36.5 %PWs1.4 (0.8-1.2cm) SV60.4 mlLVEF(%)66.5 (>50%) Aortic Valve AoV Peak Cedric.127.5cm/sAoV VTI21.1cm AO Peak GR.6.5mmHgLVOT Peak Cedric.103.4cm/s LVOT VTI 16.87cmAO Mean GR.4mmHg Mitral Valve MV E Vcdqejqy77.6cm/sMV DECEL [id number] MV A Jfswpwae39.2cm/sMV [id number] E/A Ratio1.6MVA (PHT)5.23cm2 TDI E/Lateral E'3.5E/Medial E'5.0 Pulmonary Valve PV Peak Gsjzusau126.2cm/sPV Peak Grad.6mmHg Tricuspid Valve TR P. Adospwwl096gp/sTR Peak Gr.21mmHg LEFT VENTRICLE The left ventricle is normal size. There is normal left ventricular wall thickness. The left ventricu lar systolic function is normal. Estimated ejection fraction 55-60%. There is normal LV segmental wa ll motion. The left ventricular diastolic function and filling is normal for age. RIGHT VENTRICLE The right ventricle is normal size. There is normal right ventricular wall thickness. The right ventr icular systolic function is normal. ATRIA The left atrium size is normal. The right atrium size is normal. The interatrial septum is intact wit h no evidence for an atrial septal defect or patent foramen ovale as noted on 2-D or Doppler imaging. AORTIC VALVE The aortic valve is normal in structure and function. Doppler and Color Flow revealed no significant aortic regurgitation. There is no significant aortic valvular stenosis. MITRAL VALVE The mitral valve is normal in structure and function. There is no evidence of mitral valve prolapse. There is no mitral valve stenosis. Doppler and Color-flow revealed trace mitral regurgitation. TRICUSPID VALVE The tricuspid valve is normal in structure and function. Doppler and Color Flow revealed trace tricus pid regurgitation. Estimated PAP 26 mmHg. There is no tricuspid valve stenosis. PULMONIC VALVE The pulmonary valve is normal in structure and function. Doppler and Color Flow revealed mild pulmoni c valvular regurgitation. GREAT VESSELS The aortic root is normal in size. The ascending aorta is normal in size. The IVC is normal in size a nd collapses >50% with inspiration. PERICARDIAL EFFUSION There is no evidence of significant pericardial effusion. Critical Notification Critical Value: No <Conclusion> The left ventricular systolic function is normal. Estimated ejection fraction 55-60%. There is normal LV segmental wall motion. Trace mitral regurgitation. Trace tricuspid regurgitation. Estimated PAP 26 mmHg. There is no evidence of significant pericardial effusion. Signed by : Quirino Mills, Electronically Approved : 03/15/2021 14:10:02
--- NOTE | 2021-03-15 14:25 | NUR ---
Discharge Note: [facility] [address] Discharge instructions and discharge home medications reviewed with Patient and a copy given. All questions have been answered and understanding verbalized. The following instructions and handouts were given: discharge instructions, follow ups, hypotension education, syncope education. Discontinued lines and drains: Peripheral IV intact. Patient discharged to Home or Self Care with Self via Wheelchair at 1425.
--- NOTE | 2021-03-15 14:26 | PDOC ---
CARDIO Progress Notes Date and Time Date of Service 03/15/2021 Time of Evaluation 1240 Subjective Subjective: No Chest Pain, No shortness of breath, No Palpitations, No Dizziness Vitals Vitals Vital Signs Date Time Temp Pulse Resp B/P (MAP) Pulse Ox O2 Delivery O2 Flow Rate FiO2 03/15/21 11:00 98.5 85 18 82/38 (53) 98 Room Air 98.5 Weight Weight [ ] Input and Output Intake and Output Intake and Output 03/15/21 07:00 Intake Total 240 ml Output Total 2000 ml Balance -1760 ml Intake Oral 240 ml Output Urine Total 2000 ml # Voids 1 Physical Exam HEENT: Neck Supple W Full Motion Chest: Symmetric LUNGS: Clear to Auscultation Heart: S1S2, RRR (SR no ectopies) Abdomen: Soft N/T Extremities: No Edema, No Calf Tenderness Neurology: alert, oriented, follow commands Assessment Assessment 1. Dizziness with syncope x2: possibly vasovagal with low volume. no orthostasis. EF and WM nml 2. Palpitations; remains with no tachyarrhythmias noted on tele. 3. IUP; 6 week gestation 4. Elevated d-dimer; CTA negative for PE 5. H/o DVT with first 6. H/o thyroid disease Recommendations 1. Anticipate DC today. 2. MCOT 3. Encouraged hydration adequacy 4. Follow up as scheduled Justicifation of Admission Dx: Justifications for Admission: Justification of Admission Dx: Yes RAPHAEL BUSBY APRN March 15, 2021 14:26
== END 2021-03-15 14:25 | disposition home or self-care (01) ==
LOC: EEVIPCON 18:27 → ER 18:27 → 2 NORTH 03-14 01:05 → INTOOBSV 03-14 01:05
PROVIDERS: ADMIT Family Medicine; ATTEND Family Medicine
DX: O26.893 Other specified pregnancy related conditions, third trimester (principal); R55 Syncope and collapse; R79.1 Abnormal coagulation profile; O99.281 Endocrine, nutritional and metabolic diseases complicating pregnancy, first trimester; E03.9 Hypothyroidism, unspecified; O26.21 Pregnancy care for patient with recurrent pregnancy loss, first trimester; Z98.891 History of uterine scar from previous surgery; Z79.82 Long term (current) use of aspirin; Z86.718 Personal history of other venous thrombosis and embolism; Z32.01 Encounter for pregnancy test, result positive; Z3A.01 Less than 8 weeks gestation of pregnancy; Z79.899 Other long term (current) drug therapy
CPT/HCPCS: 36415; 71045; 71275; 76801; 80053; 81001; 81025; 84443; 84484; 84702; 85025; 85379; 93306; 93970; 96360; 96361; 99285; G0378; J7030; Q9967; G0379